=== PATIENT | male | born 1940 | race Caucasian/White ===

== ENCOUNTER 2019-05-13 03:22 | Emergency (ER) | payer MEDICARE ==
[~2019-05-13] VITALS: Ht 182.9 cm; Wt 78.0 kg
--- OUTSIDE RECORDS SUMMARY | 2019-05-13 03:25 | XMS REPORT ---
Author [facility] Address Unknown Phone Unavailable Care Team Providers Care Die Maker Trim Name Role Phone Unavailable Unavailable Payers Payer Name Policy Type Policy Number Effective Date Expiration Date Problems This patient has no known problems. Allergies, Adverse Reactions, Alerts Allergy Name Allergy Type Status Severity Reaction(s) Onset Date Inactive Date Treating Clinician Comments Penicillins DA Active U 2019-03-25 00:00:00 Penicillins DA Active U 2019-02-12 00:00:00 Penicillins DA Active U 2016-02-01 00:00:00 Medications This patient has no known medications. Encounters Start Date/Time End Date/Time Encounter Type Admission Type Attending Clinicians Care Facility Care Department Encounter ID 2017-08-16 17:38:00 2017-08-16 17:38:00 Emergency [facility] [id number] 2017-08-16 17:05:18 2017-08-16 17:05:18 Emergency [facility] [id number] Results Test Description Test Time Test Comments Text Results Atomic Results Result Comments TROPONIN-I 2019-04-27 13:36:00 TROPONIN-I (test code=TROPI) 0.025 ng/mL 0-0.045 COMMENTS TO THERAPEUTIC SPECIALIST: COLLECT 3 HOURS AFTER PREVIOUS SAMPLELIPID PROFILE (CORONARY RISK)2019-04-27 09:28:00* Test Item Value Reference Range Comments TRIGLYCERIDES (test code=TRIG) 102 mg/dL 20-150 CHOLESTEROL (test code=CHOL) 173 mg/dL 0-200 CHOLESTEROL/HDL RATIO (test code=CHOLHDL) 3.0 RATIO 0-4.9 RISK ASSOCIATED WITH CHOL/HDL RATIOS: Risk Male Female1/2 AVERAGE 3.43 3.27AVERAGE 4.97 4.442X AVERAGE 9.55 7.053X AVERAGE 23.39 11.04 REFERENCE VALUE IS RELATED TO RISK LEVELS ASRECOMMENDED BY THE [facility]. HEART, LUNG, AND BLOOD INST. HDL CHOLESTEROL (test code=HDL) 51 mg/dL 40-60 LIPOPROTEIN LDL (test code=LDL) 109 mg/dL 100-129 RN PERSONNEL, CONTACT PHYSICIAN IMMEDIATELY IF THIS IS A STROKE, AMI OR CAROTID STENOSIS PATIENT WHEN THE LDL >100 (1ST OCCURENCE, THIS ADMISSION) Reference Interval: mg/dL mmol/L Optimal <100 <2.6Near/above optimal 100-129 2.6- 3.3Borderline High 130-159 3.4-4.1High 160-189 4.1-4.9Very High >=190 >=4.9=========This LDL result is a direct measurement.========= [id number] 09:03:00* Test Item Value Reference Range Comments TROPONIN-I (test code=TROPI) 0.037 ng/mL 0-0.045 COMMENTS TO THERAPEUTIC SPECIALIST: COLLECT 3 HOURS AFTER PREVIOUS SAMPLEURINALYSIS [id number] 00:20:00* Test Item Value Reference Range Comments UA COLOR (test code=COLU) COLORLESS YELLOW UA APPEARANCE (test code=APPU) CLEAR CLEAR UA GLUCOSE DIPSTICK (test code=DGLUU) NEGATIVE mg/dL NEGATIVE UA BILIRUBIN DIPSTICK (test code=BILU) NEGATIVE mg/dL NEGATIVE UA KETONE DIPSTICK (test code=KETU) NEGATIVE mg/dL NEGATIVE UA SPECIFIC GRAVITY (test code=SGU) 1.008 1.001-1.035 UA BLOOD DIPSTICK (test code=PREM) Negative mg/dL NEGATIVE UA PH DIPSTICK (test code=NYLA) 6.5 5.0-8.0 UA PROTEIN DIPSTICK (test code=PROU) NEGATIVE mg/dL NEGATIVE UA UROBILINIOGEN DIPSTICK (test code=URO) Normal mg/dL NEGATIVE UA NITRITE DIPSTICK (test code=CATINA) NEGATIVE NEGATIVE UA LEUKOCYTE ESTERASE W REFLEX (test code=LEUUR) NEGATIVE Pawel/uL NEGATIVE UA WBC (test code=WBCU) 0-5 per HPF 0-5 UA RBC (test code=RBCU) 0-2 #/HPF 0-5 UA EPITHELIAL CELLS (test code=EPIU) Few (2-5/hpf) per HPF FEW UA BACTERIA (test code=BACU) NONE SEEN #/HPF NONE Urine Source? Clean CatchPROTHROMBIN [id number] 00:08:00* Test Item Value Reference Range Comments PROTHROMBIN TIME PATIENT (test code=PTP) 12.3 seconds 9.0-14.0 INTERNATIONAL NORMAL RATIO (test code=INR) 1.0 0.8-1.2 The therapeutic range for oral anticoagulant therapy formost indications is an international normalized ratio (INR)of between 2.0 and 3.0. The recommended therapeutic INRrange for various clinical situations is listed below: Clinical Situation INR range Pulmonary e mbolism treatment (2.0-3.0)Venous thrombosis treatmentVenous thrombosis prophylaxis (high risk surgery)Prevention of systemic embolism from: Acute myocardial infarction Valvular heart disease Atrial fibrillation Mechanical prosthetic heart valves (2.5-3.5) IS PATIENT ON ANTICOAGULANTS? NCBC W/O [id number] 00:06:00* Test Item Value Reference Range Comments WHITE BLOOD CELL (test code=WBC) 9.0 K/mm3 4.5-12.5 RED BLOOD CELL (test code=RBC) 5.06 mill/mm3 4.0-5.8 HEMOGLOBIN (test code=HGB) 14.2 gram/dL 13.0-17.5 HEMATOCRIT (test code=HCT) 44.6 % 42.0-52.0 MEAN CELL VOLUME (test code=MCV) 88.1 fL 80-98 MEAN CELL HGB (test code=MCH) 28.1 picogram 27.0-33.0 MEAN CELL HGB CONCETRATION (test code=MCHC) 31.8 gram/dL 33.0-36.0 RED CELL DISTRIBUTION WIDTH (test code=RDW) 13.8 % 11.6-16.2 PLATELET COUNT (test code=PLT) 215 K/mm3 150-450 MEAN PLATELET VOLUME (test code=MPV) 8.9 fL 6.7-11.0 BASIC METABOLIC [id number] 23:56:00* Test Item Value Reference Range Comments SODIUM (test code=NA) 139 mmol/L 136-145 POTASSIUM (test code=K) 4.2 mmol/L 3.5-5.1 CHLORIDE (test code=CL) 107.0 mmol/L 98-107 CARBON DIOXIDE (test code=CO2) 23.0 mmol/L 21-32 ANION GAP (test code=GAP) 13.2 10-20 GLUCOSE (test code=GLU) 128 mg/dL 74-106 BLOOD UREA NITROGEN (test code=BUN) 26 mg/dL 7-18 GLOMERULAR FILTRATION RATE (test code=GFR) 49 mL/min >=60 Estimated GFR by using Modified MDRD formula.Chronic kidney disease is defined as either kidney damageor GFR <60 mL/min/1.73 m2 for >3 months. CREATININE (test code=CREAT) 1.40 mg/dL 0.7-1.3 BUN/CREATININE RATIO (test code=BUN/CREA) 18.6 10-20 CALCIUM (test code=CA) 8.8 mg/dL 8.5-10.1 HEPATIC FUNCTION [id number] 23:56:00* Test Item Value Reference Range Comments TOTAL PROTEIN (test code=PROT) 7.5 gram/dL 6.4-8.2 ALBUMIN (test code=ALB) 3.1 g/dL 3.4-5.0 GLOBULIN (test code=GLOB) 4.4 gram/dL 2.7-4.2 ALBUMIN/GLOBULIN RATIO (test code=A/G) 0.7 0.75-1.50 BILIRUBIN TOTAL (test code=BILT) 0.40 mg/dL 0.0-1.0 BILIRUBIN DIRECT (test code=BILD) 0.12 mg/dL 0.0-0.20 SGOT/AST (test code=AST) 20 IUnit/L 15-37 SGPT/ALT (test code=ALT) 19 IUnit/L 12-78 ALKALINE PHOSPHATASE TOTAL (test code=ALKP) 86 IUnit/L 45-117 Note change in reference range due to change in reagent. [id number] 23:56:00* Test Item Value Reference Range Comments LIPASE (test code=LIP) 158 U/L 73.0-393.0 [id number] 23:56:00* Test Item Value Reference Range Comments TROPONIN-I (test code=TROPI) 0.037 ng/mL 0-0.045 BASIC METABOLIC [id number] 23:53:00* Test Item Value Reference Range Comments SODIUM (test code=NA) 139 mmol/L 136-145 POTASSIUM (test code=K) 4.2 mmol/L 3.5-5.1 CHLORIDE (test code=CL) 107.0 mmol/L 98-107 CARBON DIOXIDE (test code=CO2) mmol/L 21-32 ANION GAP (test code=GAP) 10-20 GLUCOSE (test code=GLU) mg/dL 74-106 BLOOD UREA NITROGEN (test code=BUN) mg/dL 7-18 GLOMERULAR FILTRATION RATE (test code=GFR) mL/min >=60 CREATININE (test code=CREAT) mg/dL 0.7-1.3 BUN/CREATININE RATIO (test code=BUN/CREA) 10-20 CALCIUM (test code=CA) mg/dL 8.5-10.1 HEPATIC FUNCTION [id number] 23:53:00* Test Item Value Reference Range Comments TOTAL PROTEIN (test code=PROT) gram/dL 6.4-8.2 ALBUMIN (test code=ALB) g/dL 3.4-5.0 GLOBULIN (test code=GLOB) gram/dL 2.7-4.2 ALBUMIN/GLOBULIN RATIO (test code=A/G) 0.75-1.50 BILIRUBIN TOTAL (test code=BILT) mg/dL 0.0-1.0 BILIRUBIN DIRECT (test code=BILD) mg/dL 0.0-0.20 SGOT/AST (test code=AST) IUnit/L 15-37 SGPT/ALT (test code=ALT) IUnit/L 12-78 ALKALINE PHOSPHATASE TOTAL (test code=ALKP) IUnit/L 45-117 [id number] 23:53:00* Test Item Value Reference Range Comments LIPASE (test code=LIP) U/L 73.0-393.0 [id number] 23:53:00* Test Item Value Reference Range Comments TROPONIN-I (test code=TROPI) ng/mL 0-0.045 - XR CHEST 1 [id number] 23:50:00 FAX: Kenny Mcfarland [phone] [place]: B St: REG FAX: Elier Cruz MD [phone] Name: CECIL FRANCIS [facility] : 1940 Age/S: 79/M [address] [facility] Unit #: [id number] Loc: [place] [address] Phys: Kenny Partida MD Acct: [id number] Dis Date: Status: REG ER PHONE #: [phone] Exam Date: 04/26/2019 2335 FAX #: [phone] Reason: CHEST PAIN EXAMS: CPT CODE: [id number] XR CHEST 1 V 45931 - XR CHEST 1 V, 04/26/2019 11:29 PM Reason For Examination: CHEST PAIN Comparison: April 18, 2019 Location: R16 Findings A right chest port is seen with tip at the level of the mid SVC. An AICD is noted. LUNGS: No definite pulmonary edema or consolidation. A right calcified granuloma is seen. PLEURA: No pleural effusions CARDIOMEDIASTINAL SILHOUETTE Unremarkable IMPRESSION: No plain film evidence of acute cardiopulmonary abnormality Additional findings as above at 7820 Reported and signed by: Hiwot Tafoya M.D. CC: Kenny Partida MD; Elier Rollins MD Technologist: RT CHAZ(R); Stefania Denis Trnscrd Date/Time/By: 04/26/2019 (8121) : By: [email or web address] Orig Print D/T: S: 04/26/2019 (8040) PAGE 1 Signed Report URINALYSIS [id number] 23:42:00* Test Item Value Reference Range Comments UA COLOR (test code=COLU) COLORLESS YELLOW UA APPEARANCE (test code=APPU) CLEAR CLEAR UA GLUCOSE DIPSTICK (test code=DGLUU) NEGATIVE mg/dL NEGATIVE UA BILIRUBIN DIPSTICK (test code=BILU) NEGATIVE mg/dL NEGATIVE UA KETONE DIPSTICK (test code=KETU) NEGATIVE mg/dL NEGATIVE UA SPECIFIC GRAVITY (test code=SGU) 1.008 1.001-1.035 UA BLOOD DIPSTICK (test code=PREM) Negative mg/dL NEGATIVE UA PH DIPSTICK (test code=NYLA) 6.5 5.0-8.0 UA PROTEIN DIPSTICK (test code=PROU) NEGATIVE mg/dL NEGATIVE UA UROBILINIOGEN DIPSTICK (test code=URO) Normal mg/dL NEGATIVE UA NITRITE DIPSTICK (test code=CATINA) NEGATIVE NEGATIVE UA LEUKOCYTE ESTERASE W REFLEX (test code=LEUUR) NEGATIVE Pawel/uL NEGATIVE UA WBC (test code=WBCU) per HPF 0-5 UA RBC (test code=RBCU) per HPF 0-5 UA EPITHELIAL CELLS (test code=EPIU) per HPF Few UA BACTERIA (test code=BACU) per HPF NONE Urine Source? Clean Catch- CT ABD PELVIS W/O [id number] 22:03:00 Name: CECIL FRANCIS [facility] : 1940 Age/S: 79 / M [address] [facility] Unit #: [id number] Loc: [place] [address] Phys: Kenny Partida MD Acct: [id number] Di s Date: Status: REG ER PHONE #: Exam Date: 04/26/2019 2149 FAX #: Reason: ABD DISTENSION, DYSURIA EXAMS: CPT CODE: [id number] CT ABD PELVIS W/O CONT 77204 REASON FOR EXAM: ABD DISTENSION, DYSURIA EXAM ORDER DATE: 04/26/2019 9:35 PM Ordering M.D.: Kenny Partida MD PROCEDURE: - CT ABD P JOYCE W/O CONT COMPARISON: FINDINGS: CT images of e abdomen and pelvis were obtained without IV and without oral contrast at 5mm. Dose modulation, iterative reconstruction, and/or weight based adjus tment of the MA/KV was utilized to reduce the radiation dose to as low as reasonably achievable. The liver, spleen, and pancreas are grossly within normal limits. The gall bladder is unremarkable by CT. The kidneys are within normal limits. The urinary bladder is u nremarkable. The colon, small bowel, and stomach are within normal limits without evidence of obstruction. The appendix is unremarkable No evidence of free air or free fluid. Diffuse atherosclerotic disease of the abdominal aorta. Multiple calcified granuloma in the spleen and liver right middle lobe IMPRESSION: No acute findings in the abdomen. at 2203 Reported and signed by: Cameron Brown M.D. CC: Kenny Becker MD; Elier Rollins MD Technologist:Roselyn LEA(R); TALI Campbell CTDI: DLP: Trnscb Date/Time: 04/26/2019 (2202) t .SDR.VTL Orig Print D/T: S: 04/26/2019 (2205) PAGE 1 Signed Report - [id number] 14:15:00 FAX: Elier Cruz MD [phone] [place]: St: PRE FAX: Ivelisse Braga [phone] Name: CECIL FRANCIS [facility] : 1940 Age/S: 79/M [address] [facility] Unit #: [id number] Loc: [place] [address] Phys: Ivelisse Mcmanus MD Acct: [id number] Dis Date: Status: PRE CLI PHONE #: [phone] Exam Date: 04/08/2019 1000 FAX #: [phone] Reason: RECTAL CA EXAMS: CPT CODE: [id number] PET/CT TUMOR SK [facility] [address] HISTORY: Staging rectal cancer. COMPARISON: Abdominal and pelvic CT from February 12, 2019. PET/CT SCAN: 12 mCi of FDG administered. Images obtained from the skull base to the upper thighs 1 ho ur postinjection. Blood glucose level=91 mg/dL. HEAD AND NEC K: Intense uptake within the brain parenchyma limited evaluation. Physiolo gic pharyngeal uptake. Pathologic uptake within the left parotid gland wit hin the deep lobe measured 2.3 cm with SUV uptake ranging up to 12. Biopsy recommended for definitive evaluation. This is unusual for metastatic dis ease. CHEST: No lung parenchymal uptake. No pathologic hilar, medi astinal or axillary uptake or adenopathy. No chest wall uptake. ABDOMEN: No liver or adrenal metastatic disease. Unremarkable pancreas and spleen. Excretion from both kidneys without abnormal uptake. No patho logic mesenteric, retroperitoneal or retrocrural adenopathy or uptake. Exc retion into the bowel as well. PELVIS: Intense uptake within the c ircumferentially thickened distal rectum measuring approximately 6 cm in l ength. SUV uptake ranging up to 21 consistent with colon/rectal cancer. No pathologic adenopathy or uptake. Excretion into the urinary bladder. MUSCULOSKELETAL: No metastatic disease. IMPRESSION: Circumferentially thickened distal rectal wall involving 6 cm long segment with SUV uptake ranging up to 21 consistent with rectal/colon cancer. No hepatic or adrenal metastases. No pathologic mesenteric, retroperitoneal or retrocrural adenopathy or uptake. Uptake within the deep lobe of the left lobe of the parotid gland measuring 2.3 cm with SUV uptake ranging up to 12. This is highly in usual. Biopsy recommended for definitive evaluation. PAGE 1 Signed Report (CONTINUED) FAX: Elier Cruz MD [phone] [place]: St: PRE FAX: Ivelisse Braga [phone] Name: CECIL FRANCIS [facility] : 1940 Age/S: 79/M [address] [facility] Unit #: [id number] Loc: [place] [address] Phys: Ivelisse Mcmanus MD Acct: [id number] Dis Date: Status: PRE CLI PHONE #: [phone] Exam Date: 04/08/2019 1000 FAX #: [phone] Reason: RECTAL CA EXAMS: CPT CODE: [id number] PET/CT TUMOR SK [place] MIDTH 37878 <Continued> at 1415 Reported and signed by: Javier Tiwari M.D. CC: Elier Rollins MD; Ivelisse Mcmanus MD echnologist: Sal Stone [facility] Trnscrd Date /Time/By: 04/08/2019 (1415) : By: [email or web address] Orig Print D/T: S: 019 (2774) PAGE 2 Signed Report BASIC METABOLIC [id number] 08:37:00* Test Item Value Reference Range Comments SODIUM (test code=NA) 140 mmol/L 136-145 POTASSIUM (test code=K) 3.8 mmol/L 3.5-5.1 CHLORIDE (test code=CL) 108.0 mmol/L 98-107 CARBON DIOXIDE (test code=CO2) 27.0 mmol/L 21-32 ANION GAP (test code=GAP) 8.8 10-20 GLUCOSE (test code=GLU) 103 mg/dL 74-106 BLOOD UREA NITROGEN (test code=BUN) 14 mg/dL 7-18 GLOMERULAR FILTRATION RATE (test code=GFR) 45 mL/min >=60 Estimated GFR by using Modified MDRD formula.Chronic kidney disease is defined as either kidney damageor GFR <60 mL/min/1.73 m2 for >3 months. CREATININE (test code=CREAT) 1.50 mg/dL 0.7-1.3 BUN/CREATININE RATIO (test code=BUN/CREA) 9.3 10-20 CALCIUM (test code=CA) 9.0 mg/dL 8.5-10.1 PROTHROMBIN [id number] 08:31:00* Test Item Value Reference Range Comments PROTHROMBIN TIME PATIENT (test code=PTP) 12.1 seconds 9.0-14.0 INTERNATIONAL NORMAL RATIO (test code=INR) 1.0 0.8-1.2 The therapeutic range for oral anticoagulant therapy formost indications is an international normalized ratio (INR)of between 2.0 and 3.0. The recommended therapeutic INRrange for various clinical situations is listed below: Clinical Situation INR range Pulmonary e mbolism treatment (2.0-3.0)Venous thrombosis treatmentVenous thrombosis prophylaxis (high risk surgery)Prevention of systemic embolism from: Acute myocardial infarction Valvular heart disease Atrial fibrillation Mechanical prosthetic heart valves (2.5-3.5) THROMBOPLASTIN TIME [id number] 08:31:00* Test Item Value Reference Range Comments THROMBOPLASTIN TIME PARTIAL (test code=PTT) 37.8 seconds 25.0-36.5 BASIC METABOLIC [id number] 08:29:00* Test Item Value Reference Range Comments SODIUM (test code=NA) 140 mmol/L 136-145 POTASSIUM (test code=K) 3.8 mmol/L 3.5-5.1 CHLORIDE (test code=CL) 108.0 mmol/L 98-107 CARBON DIOXIDE (test code=CO2) mmol/L 21-32 ANION GAP (test code=GAP) 10-20 GLUCOSE (test code=GLU) mg/dL 74-106 BLOOD UREA NITROGEN (test code=BUN) mg/dL 7-18 GLOMERULAR FILTRATION RATE (test code=GFR) mL/min >=60 CREATININE (test code=CREAT) mg/dL 0.7-1.3 BUN/CREATININE RATIO (test code=BUN/CREA) 10-20 CALCIUM (test code=CA) mg/dL 8.5-10.1 CBC W/AUTO [id number] 08:16:00* Test Item Value Reference Range Comments WHITE BLOOD CELL (test code=WBC) K/mm3 4.5-12.5 RED BLOOD CELL (test code=RBC) mill/mm3 4.0-5.8 HEMOGLOBIN (test code=HGB) 13.9 gram/dL 13.0-17.5 HEMATOCRIT (test code=HCT) 43.1 % 42.0-52.0 MEAN CELL VOLUME (test code=MCV) fL 80-98 MEAN CELL HGB (test code=MCH) picogram 27.0-33.0 MEAN CELL HGB CONCETRATION (test code=MCHC) gram/dL 33.0-36.0 RED CELL DISTRIBUTION WIDTH (test code=RDW) % 11.6-16.2 RED CELL DISTRIBUTION WIDTH SD (test code=RDW-SD) fL 37.0-51.0 PLATELET COUNT (test code=PLT) K/mm3 150-450 MEAN PLATELET VOLUME (test code=MPV) fL 6.7-11.0 NEUTROPHIL % (test code=NT%) % 39.0-69.0 IMMATURE GRANULOCYTE % (test code=IG%) % 0.0-5.0 LYMPHOCYTE % (test code=LY%) % 25.0-55.0 MONOCYTE % (test code=MO%) % 0.0-10.0 EOSINOPHIL % (test code=EO%) % 0.0-5.0 BASOPHIL % (test code=BA%) % 0.0-1.0 NEUTROPHIL # (test code=NT#) K/mm3 1.8-7.7 LYMPHOCYTE # (test code=LY#) K/mm3 1.0-5.0 MONOCYTE # (test code=MO#) K/mm3 0-0.8 EOSINOPHIL # (test code=EO#) K/mm3 0.0-0.5 BASOPHIL # (test code=BA#) K/mm3 0.0-0.2 CBC W/AUTO [id number] 08:16:00* Test Item Value Reference Range Comments WHITE BLOOD CELL (test code=WBC) 7.6 K/mm3 4.5-12.5 RED BLOOD CELL (test code=RBC) 4.91 mill/mm3 4.0-5.8 HEMOGLOBIN (test code=HGB) 13.9 gram/dL 13.0-17.5 HEMATOCRIT (test code=HCT) 43.1 % 42.0-52.0 MEAN CELL VOLUME (test code=MCV) 87.8 fL 80-98 MEAN CELL HGB (test code=MCH) 28.3 picogram 27.0-33.0 MEAN CELL HGB CONCETRATION (test code=MCHC) 32.3 gram/dL 33.0-36.0 RED CELL DISTRIBUTION WIDTH (test code=RDW) 13.7 % 11.6-16.2 RED CELL DISTRIBUTION WIDTH SD (test code=RDW-SD) 43.8 fL 37.0-51.0 PLATELET COUNT (test code=PLT) 251 K/mm3 150-450 MEAN PLATELET VOLUME (test code=MPV) 9.2 fL 6.7-11.0 NEUTROPHIL % (test code=NT%) 60.1 % 39.0-69.0 IMMATURE GRANULOCYTE % (test code=IG%) 0.4 % 0.0-5.0 LYMPHOCYTE % (test code=LY%) 19.2 % 25.0-55.0 MONOCYTE % (test code=MO%) 11.8 % 0.0-10.0 EOSINOPHIL % (test code=EO%) 6.9 % 0.0-5.0 BASOPHIL % (test code=BA%) 1.6 % 0.0-1.0 NUCLEATED RBC % (test code=NRBC%) 0.0 % 0-0 NEUTROPHIL # (test code=NT#) 4.54 K/mm3 1.8-7.7 IMMATURE GRANULOCYTE # (test code=IG#) 0.03 x10 3/uL 0-0.03 LYMPHOCYTE # (test code=LY#) 1.45 K/mm3 1.0-5.0 MONOCYTE # (test code=MO#) 0.89 K/mm3 0-0.8 EOSINOPHIL # (test code=EO#) 0.52 K/mm3 0.0-0.5 BASOPHIL # (test code=BA#) 0.12 K/mm3 0.0-0.2 NUCLEATED RBC # (test code=NRBC#) 0.00 K/mm3 0.0-0.1 MANUAL DIFF REQUIRED (test code=MDIFF) NO COMPREHENSIVE METABOLIC [id number] 05:44:00* Test Item Value Reference Range Comments SODIUM (test code=NA) 136 mmol/L 136-145 POTASSIUM (test code=K) 3.9 mmol/L 3.5-5.1 CHLORIDE (test code=CL) 107.0 mmol/L 98-107 CARBON DIOXIDE (test code=CO2) 21.0 mmol/L 21-32 ANION GAP (test code=GAP) 11.9 10-20 GLUCOSE (test code=GLU) 87 mg/dL 74-106 BLOOD UREA NITROGEN (test code=BUN) 19 mg/dL 7-18 GLOMERULAR FILTRATION RATE (test code=GFR) 45 mL/min >=60 Estimated GFR by using Modified MDRD formula.Chronic kidney disease is defined as either kidney damageor GFR <60 mL/min/1.73 m2 for >3 months. CREATININE (test code=CREAT) 1.50 mg/dL 0.7-1.3 BUN/CREATININE RATIO (test code=BUN/CREA) 12.7 10-20 TOTAL PROTEIN (test code=PROT) 6.9 gram/dL 6.4-8.2 ALBUMIN (test code=ALB) 2.8 g/dL 3.4-5.0 GLOBULIN (test code=GLOB) 4.1 gram/dL 2.7-4.2 ALBUMIN/GLOBULIN RATIO (test code=A/G) 0.7 0.75-1.50 CALCIUM (test code=CA) 8.8 mg/dL 8.5-10.1 BILIRUBIN TOTAL (test code=BILT) 0.40 mg/dL 0.0-1.0 SGOT/AST (test code=AST) 18 IUnit/L 15-37 SGPT/ALT (test code=ALT) 15 IUnit/L 12-78 ALKALINE PHOSPHATASE TOTAL (test code=ALKP) 64 IUnit/L 45-117 Note change in reference range due to change in reagent. COMPREHENSIVE METABOLIC [id number] 05:30:00* Test Item Value Reference Range Comments SODIUM (test code=NA) 136 mmol/L 136-145 POTASSIUM (test code=K) 3.9 mmol/L 3.5-5.1 CHLORIDE (test code=CL) 107.0 mmol/L 98-107 CARBON DIOXIDE (test code=CO2) mmol/L 21-32 ANION GAP (test code=GAP) 10-20 GLUCOSE (test code=GLU) mg/dL 74-106 BLOOD UREA NITROGEN (test code=BUN) mg/dL 7-18 GLOMERULAR FILTRATION RATE (test code=GFR) mL/min >=60 CREATININE (test code=CREAT) mg/dL 0.7-1.3 BUN/CREATININE RATIO (test code=BUN/CREA) 10-20 TOTAL PROTEIN (test code=PROT) gram/dL 6.4-8.2 ALBUMIN (test code=ALB) g/dL 3.4-5.0 GLOBULIN (test code=GLOB) gram/dL 2.7-4.2 ALBUMIN/GLOBULIN RATIO (test code=A/G) 0.75-1.50 CALCIUM (test code=CA) mg/dL 8.5-10.1 BILIRUBIN TOTAL (test code=BILT) mg/dL 0.0-1.0 SGOT/AST (test code=AST) IUnit/L 15-37 SGPT/ALT (test code=ALT) IUnit/L 12-78 ALKALINE PHOSPHATASE TOTAL (test code=ALKP) IUnit/L 45-117 CBC W/AUTO [id number] 05:11:00* Test Item Value Reference Range Comments WHITE BLOOD CELL (test code=WBC) 7.8 K/mm3 4.5-12.5 RED BLOOD CELL (test code=RBC) 4.42 mill/mm3 4.0-5.8 HEMOGLOBIN (test code=HGB) 12.6 gram/dL 13.0-17.5 HEMATOCRIT (test code=HCT) 38.8 % 42.0-52.0 MEAN CELL VOLUME (test code=MCV) 87.8 fL 80-98 MEAN CELL HGB (test code=MCH) 28.5 picogram 27.0-33.0 MEAN CELL HGB CONCETRATION (test code=MCHC) 32.5 gram/dL 33.0-36.0 RED CELL DISTRIBUTION WIDTH (test code=RDW) 13.5 % 11.6-16.2 RED CELL DISTRIBUTION WIDTH SD (test code=RDW-SD) 44.0 fL 37.0-51.0 PLATELET COUNT (test code=PLT) 198 K/mm3 150-450 MEAN PLATELET VOLUME (test code=MPV) 9.2 fL 6.7-11.0 NEUTROPHIL % (test code=NT%) 64.9 % 39.0-69.0 IMMATURE GRANULOCYTE % (test code=IG%) 0.4 % 0.0-5.0 LYMPHOCYTE % (test code=LY%) 17.8 % 25.0-55.0 MONOCYTE % (test code=MO%) 11.4 % 0.0-10.0 EOSINOPHIL % (test code=EO%) 4.5 % 0.0-5.0 BASOPHIL % (test code=BA%) 1.0 % 0.0-1.0 NUCLEATED RBC % (test code=NRBC%) 0.0 % 0-0 NEUTROPHIL # (test code=NT#) 5.08 K/mm3 1.8-7.7 IMMATURE GRANULOCYTE # (test code=IG#) 0.03 x10 3/uL 0-0.03 LYMPHOCYTE # (test code=LY#) 1.39 K/mm3 1.0-5.0 MONOCYTE # (test code=MO#) 0.89 K/mm3 0-0.8 EOSINOPHIL # (test code=EO#) 0.35 K/mm3 0.0-0.5 BASOPHIL # (test code=BA#) 0.08 K/mm3 0.0-0.2 NUCLEATED RBC # (test code=NRBC#) 0.00 K/mm3 0.0-0.1 [id number] 14:50:00 RUN DATE: 02/18/19 [facility] PAGE 1 RUN TIME: 1450 Specimen Inqui ry RUN USER: INTERFACE PATIENT: CECIL FRANCIS ACCT #: [id number] LOC: [facility] U #: [id number] AGE/SX: 79/M ROOM: 2064 RE02/13/19REG DR: Angelic Kuhn MD : 38 BED: B DIS: STATUS: ADM IN TLOC: SPEC #: [id number] RECD: 02/15/19 STATUS: ALEXEY WYATT #: [id number] SOLIS: 02/15/19- SUBM DR: Lukas Anaya MD ENTERED: 02/15/19 SP TYPE: COLON OTHR DR: Sidney Tamayo MD, William W DO Mullins, Jackie A MD Quraishi, Mohammed A MD TUMOR REGISTRYORDERED: GROSS COPIES TO: Lukas Anaya MD [address] [place] [address] Sidney Tamayo MD [address] [place], [place] [address] Cecil Mayorga DO [address] [place], [place] [id number] Sherry Phillips MD [address] [facility] [place], [place] [address] Ivelisse Mcmanus MD [address] [place] [address] T UMOR REGISTRY MARKERS: INTRADEPARTMENTAL CONSULT, MALIGNANCY PROCEDURES: GROSS ( 02/18/19-134) TISSUES: 1. DESCENDING COLON - POLYP 2. ASCENDI NG COLON - POLYP 3. CECUM, NOS - POLYP 4. RECTUM, NOS - POLYP CONTINUED ON NEXT PAGE RUN DATE: 02/18/19 [facility] PAGE 2 RUN TIME: 1450 Specimen Inquiry RUN USER: INTERFACE -- SPEC #: [id number] PATIENT: CECIL FRANCIS #[id number] (Continued) CLINICAL HISTORY COLLECTION DATE: 02/14/19 RECTAL MASS BLEEDING COMMENT Intradepartmental cons ultation: RRB/FA FINAL DIAGNOSIS Descending colon, polyp X 2, snare p olypectomy: TUBULAR ADENOMAS NEGATIVE FOR MALIGNANCY Ascendi ng colon, polyp X 2, snare polypectomy: TUBULAR ADENOMAS NEGATIVE FOR MALIGNANCY Cecum, polyp, biopsy: TUBULAR ADENOMA NEGATIV E FOR MALIGNANCY Rectum, mass, biopsy: ADENOCARCINOMA DMW/sm D (2) 00848 MACROSCOPIC Specimen (1) is received in for uzma, labeled with the patient's name, identified as "descending polyp", and consists of doan biopsy tissue measuring 0.35 cm in aggregate, submitted as (1) . Specimen (2) is received in formalin, labeled with the patient's name, identified as "ascending polyp", and consists of multiple fragments of doan bi opsy tissue measuring 0.5 cm in aggregate, submitted as (2). Specimen (3) is received in formalin, labeled with the patient's name, identified as "cecum ", and consists of a single fragment of doan biopsy tissue measuring 0.2 cm, leung bmitted as (3). Specimen (4) is received in formalin, labeled with the pat ient's name, identified as "rectal mass", and consists of two fragments of angella k doan biopsy tissue measuring 0.35 cm in aggregate, submitted as (4). 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 GROSS PERFORMED AT [facility] [address] [place] [address] [phone] PERFORMING SITE Diagnos is performed at: [facility], [place] [address] [place], [place] [id number] Jeffy Marques ON FILE Yadira Franks MD 02/18/19 1450 END OF REPORT COMPREHENSIVE METABOLIC [id number] 12:13:00* Test Item Value Reference Range Comments SODIUM (test code=NA) 138 mmol/L 136-145 POTASSIUM (test code=K) 4.1 mmol/L 3.5-5.1 CHLORIDE (test code=CL) 107.0 mmol/L 98-107 CARBON DIOXIDE (test code=CO2) 23.0 mmol/L 21-32 ANION GAP (test code=GAP) 12.1 10-20 GLUCOSE (test code=GLU) 128 mg/dL 74-106 BLOOD UREA NITROGEN (test code=BUN) 18 mg/dL 7-18 GLOMERULAR FILTRATION RATE (test code=GFR) 42 mL/min >=60 Estimated GFR by using Modified MDRD formula.Chronic kidney disease is defined as either kidney damageor GFR <60 mL/min/1.73 m2 for >3 months. CREATININE (test code=CREAT) 1.60 mg/dL 0.7-1.3 BUN/CREATININE RATIO (test code=BUN/CREA) 11.3 10-20 TOTAL PROTEIN (test code=PROT) 7.2 gram/dL 6.4-8.2 ALBUMIN (test code=ALB) 2.9 g/dL 3.4-5.0 GLOBULIN (test code=GLOB) 4.3 gram/dL 2.7-4.2 ALBUMIN/GLOBULIN RATIO (test code=A/G) 0.7 0.75-1.50 CALCIUM (test code=CA) 8.9 mg/dL 8.5-10.1 BILIRUBIN TOTAL (test code=BILT) 0.50 mg/dL 0.0-1.0 SGOT/AST (test code=AST) 17 IUnit/L 15-37 SGPT/ALT (test code=ALT) 14 IUnit/L 12-78 ALKALINE PHOSPHATASE TOTAL (test code=ALKP) 66 IUnit/L 45-117 Note change in reference range due to change in reagent. SPECIMEN COMMENTS: CODE [id number] 12:13:00* Test Item Value Reference Range Comments PHOSPHORUS (test code=PHOS) 2.7 mg/dL 2.5-4.9 SPECIMEN COMMENTS: CODE [id number] 12:13:00* Test Item Value Reference Range Comments MAGNESIUM (test code=MAG) 2.3 mg/dL 1.8-2.4 SPECIMEN COMMENTS: CODE STROKECOMPREHENSIVE METABOLIC [id number] 11:57:00* Test Item Value Reference Range Comments SODIUM (test code=NA) 138 mmol/L 136-145 POTASSIUM (test code=K) 4.1 mmol/L 3.5-5.1 CHLORIDE (test code=CL) 107.0 mmol/L 98-107 CARBON DIOXIDE (test code=CO2) mmol/L 21-32 ANION GAP (test code=GAP) 10-20 GLUCOSE (test code=GLU) mg/dL 74-106 BLOOD UREA NITROGEN (test code=BUN) mg/dL 7-18 GLOMERULAR FILTRATION RATE (test code=GFR) mL/min >=60 CREATININE (test code=CREAT) mg/dL 0.7-1.3 BUN/CREATININE RATIO (test code=BUN/CREA) 10-20 TOTAL PROTEIN (test code=PROT) gram/dL 6.4-8.2 ALBUMIN (test code=ALB) g/dL 3.4-5.0 GLOBULIN (test code=GLOB) gram/dL 2.7-4.2 ALBUMIN/GLOBULIN RATIO (test code=A/G) 0.75-1.50 CALCIUM (test code=CA) mg/dL 8.5-10.1 BILIRUBIN TOTAL (test code=BILT) mg/dL 0.0-1.0 SGOT/AST (test code=AST) IUnit/L 15-37 SGPT/ALT (test code=ALT) IUnit/L 12-78 ALKALINE PHOSPHATASE TOTAL (test code=ALKP) IUnit/L 45-117 SPECIMEN COMMENTS: CODE [id number] 11:57:00* Test Item Value Reference Range Comments PHOSPHORUS (test code=PHOS) mg/dL 2.5-4.9 SPECIMEN COMMENTS: CODE [id number] 11:57:00* Test Item Value Reference Range Comments MAGNESIUM (test code=MAG) mg/dL 1.8-2.4 SPECIMEN COMMENTS: CODE STROKECBC W/AUTO [id number] 11:48:00* Test Item Value Reference Range Comments WHITE BLOOD CELL (test code=WBC) 7.3 K/mm3 4.5-12.5 RED BLOOD CELL (test code=RBC) 4.67 mill/mm3 4.0-5.8 HEMOGLOBIN (test code=HGB) 12.7 gram/dL 13.0-17.5 HEMATOCRIT (test code=HCT) 41.7 % 42.0-52.0 MEAN CELL VOLUME (test code=MCV) 89.3 fL 80-98 MEAN CELL HGB (test code=MCH) 27.2 picogram 27.0-33.0 MEAN CELL HGB CONCETRATION (test code=MCHC) 30.5 gram/dL 33.0-36.0 RED CELL DISTRIBUTION WIDTH (test code=RDW) 13.7 % 11.6-16.2 RED CELL DISTRIBUTION WIDTH SD (test code=RDW-SD) 44.6 fL 37.0-51.0 PLATELET COUNT (test code=PLT) 205 K/mm3 150-450 MEAN PLATELET VOLUME (test code=MPV) 9.3 fL 6.7-11.0 NEUTROPHIL % (test code=NT%) 72.6 % 39.0-69.0 IMMATURE GRANULOCYTE % (test code=IG%) 0.7 % 0.0-5.0 LYMPHOCYTE % (test code=LY%) 14.1 % 25.0-55.0 MONOCYTE % (test code=MO%) 8.9 % 0.0-10.0 EOSINOPHIL % (test code=EO%) 2.6 % 0.0-5.0 BASOPHIL % (test code=BA%) 1.1 % 0.0-1.0 NUCLEATED RBC % (test code=NRBC%) 0.0 % 0-0 NEUTROPHIL # (test code=NT#) 5.30 K/mm3 1.8-7.7 IMMATURE GRANULOCYTE # (test code=IG#) 0.05 x10 3/uL 0-0.03 LYMPHOCYTE # (test code=LY#) 1.03 K/mm3 1.0-5.0 MONOCYTE # (test code=MO#) 0.65 K/mm3 0-0.8 EOSINOPHIL # (test code=EO#) 0.19 K/mm3 0.0-0.5 BASOPHIL # (test code=BA#) 0.08 K/mm3 0.0-0.2 NUCLEATED RBC # (test code=NRBC#) 0.00 K/mm3 0.0-0.1 MANUAL DIFF REQUIRED (test code=MDIFF) NO SPECIMEN COMMENTS: CODE STROKEPROTHROMBIN [id number] 11:37:00* Test Item Value Reference Range Comments PROTHROMBIN TIME PATIENT (test code=PTP) 13.2 seconds 9.0-14.0 INTERNATIONAL NORMAL RATIO (test code=INR) 1.1 0.8-1.2 The therapeutic range for oral anticoagulant therapy formost indications is an international normalized ratio (INR)of between 2.0 and 3.0. The recommended therapeutic INRrange for various clinical situations is listed below: Clinical Situation INR range Pulmonary e mbolism treatment (2.0-3.0)Venous thrombosis treatmentVenous thrombosis prophylaxis (high risk surgery)Prevention of systemic embolism from: Acute myocardial infarction Valvular heart disease Atrial fibrillation Mechanical prosthetic heart valves (2.5-3.5) IS PATIENT ON ANTICOAGULANTS? NSPECIMEN COMMENTS: CODE STROKETHROMBOPLASTIN TIME [id number] 11:37:00* Test Item Value Reference Range Comments THROMBOPLASTIN TIME PARTIAL (test code=PTT) 36.1 seconds 25.0-36.5 IS PATIENT ON ANTICOAGULANTS? NSPECIMEN COMMENTS: CODE STROKE- CT HEAD/BRAIN W/O [id number] 11:01:00 Name: CECIL FRANCIS [facility] : 1940 Age/S: 79 / [facility] [address] [facility]: [id number] Loc: [place] [address] Phys: Angelic Kuhn MD Acct: [id number] Dis Date: Status: ADM IN PHONE #: [phone] Exam Date: 02/18/2019 1052 FAX #: [phone] Reason: CODE STROKE EXAMS: CPT CODE: [id number] CT HEAD/BRAIN W/O CONT 34166 HISTORY: Stroke. COMPARISON: Head CT from February 14, 2019.. No acute intracranial bleeds or extra-axial collections are noted. No acute territorial vascular infarction is noted. The sulci, gyri, ventricles and subarachnoid spaces and the basilar cisterns are normal for patient's age. No herniation or hydrocephalus or midline shift is noted. Mild periventricular ischemic gliosis is noted. Age-appropriate atrophy is noted as well. Portions of the visualized paranasal sinuses are normal. No obvious bony calvarial defect is noted. IMPRESSION: No acute intracranial bleeds or extra- axial collections. No acute territorial vascular infarction. No herniation or hydrocephalus or midline shift. 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 These findings were discussed patient's nurse Felicita at 11:59 AM. FOR INTERNAL CODING PURPOSES ONLY RESULT CODE: CVR at 1101 Reported and signed by: Javier Tiwari M.D. CC: Angelic Kuhn MD Technologist:Steffanie Carrera,RT(R),CT CTDI: DLP: Trnscb Date/Time: 02/18/2019 (1101) [email or web address] Orig Print D/T: S: 02/18/2019 (4743) CTDI: DLP: PAGE 1 Signed Report [id number] 10:46:00* Test Item Value Reference Range Comments GLUGLADYS (test code=GLUBED) 115 mg/dL 74-106 Performed by certified mixer operator vacuum pan salt at [facility] - XR CHEST 1 [id number] 08:12:00 FAX: Angelic Sagastume MD [phone] [place]: St: ADM Name: CECIL SAGE [facility] : [birth year] Age/S: 79/M [address] [facility] Unit #: [id number] Loc: V.[address] [place] [address] Phys: Sidney Tamayo MD Acct: [id number] Dis Date: Status: ADM IN PHONE #: [phone] Exam Date: 02/18/2019749 FAX #: [phone] Reason: line placement EXAMS: CPT CODE: [id number] XR CHEST 1 V 44915 HISTORY: Line placement. COMPARISON: February 14, 2019. Right Port-A-Cath with the tip pr ojected over the SVC without pneumothorax. Left ICD is unchanged. No acute infiltrates, effusion or congestion. Calcified granuloma in the right low er lobe. Lung scarring. Cardiomegaly. IMPRESSION: Right Port-A-Cath with the tip projected over the SVC without pneumothorax. 19 at 0812 Reported and signed by: Javier Tiwari M.D. CC: Angelic Kuhn MD Technologist: BIPIN JORGENSEN JR Trnscrd Date/Time/By: 02/18/2019 (0812) : By: [email or web address] Orig Print D/T: S: (7700) PAGE 1 Signed Rep ort COMPREHENSIVE METABOLIC [id number] 04:55:00* Test Item Value Reference Range Comments SODIUM (test code=NA) 140 mmol/L 136-145 POTASSIUM (test code=K) 3.8 mmol/L 3.5-5.1 CHLORIDE (test code=CL) 108.0 mmol/L 98-107 CARBON DIOXIDE (test code=CO2) 24.0 mmol/L 21-32 ANION GAP (test code=GAP) 11.8 10-20 GLUCOSE (test code=GLU) 86 mg/dL 74-106 BLOOD UREA NITROGEN (test code=BUN) 16 mg/dL 7-18 GLOMERULAR FILTRATION RATE (test code=GFR) 49 mL/min >=60 Estimated GFR by using Modified MDRD formula.Chronic kidney disease is defined as either kidney damageor GFR <60 mL/min/1.73 m2 for >3 months. CREATININE (test code=CREAT) 1.40 mg/dL 0.7-1.3 BUN/CREATININE RATIO (test code=BUN/CREA) 11.4 10-20 TOTAL PROTEIN (test code=PROT) 7.3 gram/dL 6.4-8.2 ALBUMIN (test code=ALB) 2.8 g/dL 3.4-5.0 GLOBULIN (test code=GLOB) 4.5 gram/dL 2.7-4.2 ALBUMIN/GLOBULIN RATIO (test code=A/G) 0.6 0.75-1.50 CALCIUM (test code=CA) 8.8 mg/dL 8.5-10.1 BILIRUBIN TOTAL (test code=BILT) 0.40 mg/dL 0.0-1.0 SGOT/AST (test code=AST) 18 IUnit/L 15-37 SGPT/ALT (test code=ALT) 13 IUnit/L 12-78 ALKALINE PHOSPHATASE TOTAL (test code=ALKP) 67 IUnit/L 45-117 Note change in reference range due to change in reagent. COMPREHENSIVE METABOLIC [id number] 04:48:00* Test Item Value Reference Range Comments SODIUM (test code=NA) 140 mmol/L 136-145 POTASSIUM (test code=K) 3.8 mmol/L 3.5-5.1 CHLORIDE (test code=CL) 108.0 mmol/L 98-107 CARBON DIOXIDE (test code=CO2) mmol/L 21-32 ANION GAP (test code=GAP) 10-20 GLUCOSE (test code=GLU) mg/dL 74-106 BLOOD UREA NITROGEN (test code=BUN) mg/dL 7-18 GLOMERULAR FILTRATION RATE (test code=GFR) mL/min >=60 CREATININE (test code=CREAT) mg/dL 0.7-1.3 BUN/CREATININE RATIO (test code=BUN/CREA) 10-20 TOTAL PROTEIN (test code=PROT) gram/dL 6.4-8.2 ALBUMIN (test code=ALB) g/dL 3.4-5.0 GLOBULIN (test code=GLOB) gram/dL 2.7-4.2 ALBUMIN/GLOBULIN RATIO (test code=A/G) 0.75-1.50 CALCIUM (test code=CA) mg/dL 8.5-10.1 BILIRUBIN TOTAL (test code=BILT) mg/dL 0.0-1.0 SGOT/AST (test code=AST) IUnit/L 15-37 SGPT/ALT (test code=ALT) IUnit/L 12-78 ALKALINE PHOSPHATASE TOTAL (test code=ALKP) IUnit/L 45-117 CBC W/AUTO [id number] 04:44:00* Test Item Value Reference Range Comments WHITE BLOOD CELL (test code=WBC) 6.6 K/mm3 4.5-12.5 RED BLOOD CELL (test code=RBC) 4.59 mill/mm3 4.0-5.8 HEMOGLOBIN (test code=HGB) 13.1 gram/dL 13.0-17.5 HEMATOCRIT (test code=HCT) 40.3 % 42.0-52.0 MEAN CELL VOLUME (test code=MCV) 87.8 fL 80-98 MEAN CELL HGB (test code=MCH) 28.5 picogram 27.0-33.0 MEAN CELL HGB CONCETRATION (test code=MCHC) 32.5 gram/dL 33.0-36.0 RED CELL DISTRIBUTION WIDTH (test code=RDW) 13.7 % 11.6-16.2 RED CELL DISTRIBUTION WIDTH SD (test code=RDW-SD) 44.0 fL 37.0-51.0 PLATELET COUNT (test code=PLT) 202 K/mm3 150-450 MEAN PLATELET VOLUME (test code=MPV) 9.5 fL 6.7-11.0 NEUTROPHIL % (test code=NT%) 55.3 % 39.0-69.0 IMMATURE GRANULOCYTE % (test code=IG%) 0.5 % 0.0-5.0 LYMPHOCYTE % (test code=LY%) 23.0 % 25.0-55.0 MONOCYTE % (test code=MO%) 12.8 % 0.0-10.0 EOSINOPHIL % (test code=EO%) 7.3 % 0.0-5.0 BASOPHIL % (test code=BA%) 1.1 % 0.0-1.0 NUCLEATED RBC % (test code=NRBC%) 0.0 % 0-0 NEUTROPHIL # (test code=NT#) 3.64 K/mm3 1.8-7.7 IMMATURE GRANULOCYTE # (test code=IG#) 0.03 x10 3/uL 0-0.03 LYMPHOCYTE # (test code=LY#) 1.51 K/mm3 1.0-5.0 MONOCYTE # (test code=MO#) 0.84 K/mm3 0-0.8 EOSINOPHIL # (test code=EO#) 0.48 K/mm3 0.0-0.5 BASOPHIL # (test code=BA#) 0.07 K/mm3 0.0-0.2 NUCLEATED RBC # (test code=NRBC#) 0.00 K/mm3 0.0-0.1 CBC W/AUTO [id number] 04:41:00* Test Item Value Reference Range Comments WHITE BLOOD CELL (test code=WBC) K/mm3 4.5-12.5 RED BLOOD CELL (test code=RBC) mill/mm3 4.0-5.8 HEMOGLOBIN (test code=HGB) 13.1 gram/dL 13.0-17.5 HEMATOCRIT (test code=HCT) % 42.0-52.0 MEAN CELL VOLUME (test code=MCV) fL 80-98 MEAN CELL HGB (test code=MCH) picogram 27.0-33.0 MEAN CELL HGB CONCETRATION (test code=MCHC) gram/dL 33.0-36.0 RED CELL DISTRIBUTION WIDTH (test code=RDW) % 11.6-16.2 RED CELL DISTRIBUTION WIDTH SD (test code=RDW-SD) fL 37.0-51.0 PLATELET COUNT (test code=PLT) K/mm3 150-450 MEAN PLATELET VOLUME (test code=MPV) fL 6.7-11.0 NEUTROPHIL % (test code=NT%) % 39.0-69.0 IMMATURE GRANULOCYTE % (test code=IG%) % 0.0-5.0 LYMPHOCYTE % (test code=LY%) % 25.0-55.0 MONOCYTE % (test code=MO%) % 0.0-10.0 EOSINOPHIL % (test code=EO%) % 0.0-5.0 BASOPHIL % (test code=BA%) % 0.0-1.0 NEUTROPHIL # (test code=NT#) K/mm3 1.8-7.7 LYMPHOCYTE # (test code=LY#) K/mm3 1.0-5.0 MONOCYTE # (test code=MO#) K/mm3 0-0.8 EOSINOPHIL # (test code=EO#) K/mm3 0.0-0.5 BASOPHIL # (test code=BA#) K/mm3 0.0-0.2 AG [id number] 22:20:00* Test Item Value Reference Range Comments AG CARCINOEMBRYONIC (test code=CEA) 1.6 ng/mL 0.0-3.0 "HEALTHY" SMOKERS CAN HAVE CEA VALUES UP TO 5 NG/ML. BENIGNDISORDERS SELDOM ELEVATE THE SERUM CEA LEVEL ABOVE 10 NG/ML. CBC W/AUTO [id number] 06:56:00* Test Item Value Reference Range Comments WHITE BLOOD CELL (test code=WBC) 10.1 K/mm3 4.5-12.5 RED BLOOD CELL (test code=RBC) 4.56 mill/mm3 4.0-5.8 HEMOGLOBIN (test code=HGB) 12.8 gram/dL 13.0-17.5 HEMATOCRIT (test code=HCT) 40.6 % 42.0-52.0 MEAN CELL VOLUME (test code=MCV) 89.0 fL 80-98 MEAN CELL HGB (test code=MCH) 28.1 picogram 27.0-33.0 MEAN CELL HGB CONCETRATION (test code=MCHC) 31.5 gram/dL 33.0-36.0 RED CELL DISTRIBUTION WIDTH (test code=RDW) 14.0 % 11.6-16.2 RED CELL DISTRIBUTION WIDTH SD (test code=RDW-SD) 45.0 fL 37.0-51.0 PLATELET COUNT (test code=PLT) 178 K/mm3 150-450 MEAN PLATELET VOLUME (test code=MPV) 9.4 fL 6.7-11.0 NEUTROPHIL % (test code=NT%) 74.0 % 39.0-69.0 IMMATURE GRANULOCYTE % (test code=IG%) 0.3 % 0.0-5.0 LYMPHOCYTE % (test code=LY%) 12.6 % 25.0-55.0 MONOCYTE % (test code=MO%) 10.7 % 0.0-10.0 EOSINOPHIL % (test code=EO%) 1.8 % 0.0-5.0 BASOPHIL % (test code=BA%) 0.6 % 0.0-1.0 NUCLEATED RBC % (test code=NRBC%) 0.0 % 0-0 NEUTROPHIL # (test code=NT#) 7.49 K/mm3 1.8-7.7 IMMATURE GRANULOCYTE # (test code=IG#) 0.03 x10 3/uL 0-0.03 LYMPHOCYTE # (test code=LY#) 1.27 K/mm3 1.0-5.0 MONOCYTE # (test code=MO#) 1.08 K/mm3 0-0.8 EOSINOPHIL # (test code=EO#) 0.18 K/mm3 0.0-0.5 BASOPHIL # (test code=BA#) 0.06 K/mm3 0.0-0.2 NUCLEATED RBC # (test code=NRBC#) 0.00 K/mm3 0.0-0.1 MANUAL DIFF REQUIRED (test code=MDIFF) NO BASIC METABOLIC [id number] 06:53:00* Test Item Value Reference Range Comments SODIUM (test code=NA) 139 mmol/L 136-145 POTASSIUM (test code=K) 3.8 mmol/L 3.5-5.1 CHLORIDE (test code=CL) 110.0 mmol/L 98-107 CARBON DIOXIDE (test code=CO2) 22.0 mmol/L 21-32 ANION GAP (test code=GAP) 10.8 10-20 GLUCOSE (test code=GLU) 94 mg/dL 74-106 BLOOD UREA NITROGEN (test code=BUN) 13 mg/dL 7-18 GLOMERULAR FILTRATION RATE (test code=GFR) 58 mL/min >=60 Estimated GFR by using Modified MDRD formula.Chronic kidney disease is defined as either kidney damageor GFR <60 mL/min/1.73 m2 for >3 months. CREATININE (test code=CREAT) 1.20 mg/dL 0.7-1.3 BUN/CREATININE RATIO (test code=BUN/CREA) 10.8 10-20 CALCIUM (test code=CA) 8.6 mg/dL 8.5-10.1 [id number] 06:53:00* Test Item Value Reference Range Comments PHOSPHORUS (test code=PHOS) 2.9 mg/dL 2.5-4.9 [id number] 06:53:00* Test Item Value Reference Range Comments MAGNESIUM (test code=MAG) 2.4 mg/dL 1.8-2.4 BASIC METABOLIC [id number] 06:42:00* Test Item Value Reference Range Comments SODIUM (test code=NA) 139 mmol/L 136-145 POTASSIUM (test code=K) 3.8 mmol/L 3.5-5.1 CHLORIDE (test code=CL) 110.0 mmol/L 98-107 CARBON DIOXIDE (test code=CO2) mmol/L 21-32 ANION GAP (test code=GAP) 10-20 GLUCOSE (test code=GLU) mg/dL 74-106 BLOOD UREA NITROGEN (test code=BUN) mg/dL 7-18 GLOMERULAR FILTRATION RATE (test code=GFR) mL/min >=60 CREATININE (test code=CREAT) mg/dL 0.7-1.3 BUN/CREATININE RATIO (test code=BUN/CREA) 10-20 CALCIUM (test code=CA) mg/dL 8.5-10.1 [id number] 06:42:00* Test Item Value Reference Range Comments PHOSPHORUS (test code=PHOS) mg/dL 2.5-4.9 [id number] 06:42:00* Test Item Value Reference Range Comments MAGNESIUM (test code=MAG) mg/dL 1.8-2.4 - CT HEAD/BRAIN W/O [id number] 22:26:00 Name: CECIL FRANCIS [facility] : 1940 Age/S: 79 / M Michelle Coelho Unit #: [id number] Loc: [place] [address] Phys: Angelic Kuhn MD Acct: [id number] Dis Date: Status: ADM IN PHONE #: [phone] Exam Date: 02/14/20192056 FAX #: [phone] Reason: FALL EXAMS: CPT CODE: [id number] CT HEAD/BRAIN W/O CONT [id number] EXAM: CT of the head without contrast; INFORMATION: Status post fall, colon mass; TECHNIQUE AND FINDINGS: CT dose reduction protocol; 2.5 mm axial scans. There is no evidence of intra or extra-axial hemorrhage, mass lesions or midline shift. There are extensive hypodensities involving the periventricular and deep white matter, left greater than right. This is similar to a study from December 26, 2018. Otherwise, unremarkable pritchard/white matter differentiation. Ventricles are moderately dilated; prominent sulci and basilar cisterns. Bone windows show no abnormalities; the calvarium is intact. Mucosal swelling in the left maxillary sinus and in the medial inferior portions of the right frontal sinus. Mastoid air cells are well aerated. IMPRESSION: 1. No evidence of intracranial hemorrhage or acute territorial infarction. 2. Extensive chronic ischemic white matter changes. This is similar to a study from December 26, 2018. 3. No evidence of skull fracture. 4. Mild sinusitis. at 2226 Reported and signed by: Hector Merrill M.D. CC: Angelic Monteiro MD Technologist:TALI MILLAN, RT (R) CT CTDI: DLP: Trnscb Date/Time: 02/14/2019 (2225) [email or web address] Orig Print D/T: S: 02/14/2019 (2229) CTDI: DLP: PAGE 1 Signed Report - XR CHEST 1 [id number] 20:00:00 FAX: Angelic Sagastume MD [phone] [place]: B St: [facility] FAX: Zeeshan Wheeler MD [phone] Name: CECIL FRANCIS [facility] : 1940 Age/S: 79/M [address] [facility] Unit #: [id number] Loc: [place] [address] Phys: Zeeshan Wheeler MD Acct: [id number] Dis Date: Status: ADM IN PHONE #: [phone] Exam Date: 02/14/20191742 FAX #: [phone] Reason: S/P FALL EXAMS: CPT CODE: [id number] XR CHEST 1 V 56281 EXAM: Chest x-ray, one view; INFORMATION: Status post fall, colon mass; rectal bleeding; IMPRESSION: 1. Co mpared with a study from December 26, 2018 the heart has decreased in siz e. Its size is now within upper limits of normal. 2. Except for a calcif ied granuloma laterally in the right lung, the lungs are well aerated; n o infiltrates and no edema. 3. No effusions; no pneumothorax. 4. Aortic calcifications. 5. 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 CC: Angelic Kuhn MD; Zeeshan Holden MD Technologist: Alexander LEA(R) Trnscrd Date/Time/By: 02/14/2019 (1999) : By: PatricioGRW Orig Print D/T: S: 02/14/2019 (2002) PAGE 1 Signed Report - XR ABDOMEN AP 1 V 2019-02-14 19:16:00 FAX: Angelic Sagastume MD [phone] [place]: St: ADM FAX: Zeeshan Wheeler MD [phone] Name: CECIL FRANCIS [facility] : 1940 Age/S: 79/M [address] [facility] Unit #: [id number] Loc: [facility] [place] [address] Phys: Zeeshan Wheeler MD Acct: [id number] Dis Date: Status: ADM IN PHONE #: [phone] Exam Date: 02/14/2019 174 FAX #: [phone] Reason: S/P FALL EXAMS: CPT CODE: [id number] XR ABDOMEN AP 1 V [id number] EXAM: Abdomen, one view; INFORMATION: Colon mass, rectal bleeding; status post fall; IMPRESSION: 1. Unremarkable bowel gas pattern; no evidence of obstruction or other acute abnormalities. 2. Extensive calcifications of the thoracoabdominal aorta. at 1916 Reported and signed by: Hector Merrill M.D. CC: Angelic Kuhn MD; Zeeshan Wheeler MD Technologist: Alexander LEA(R) Trnscrd Date/Time/By: 02/14/2019 (1915) : By: PatricioGRW Orig Print D/T: S: 02/14/2019 (1918) PAGE 1 Signed Report [id number] 17:09:00* Test Item Value Reference Range Comments GLUBED (test code=GLUBED) 98 mg/dL 74-106 Performed by certified mixer operator vacuum pan salt at [facility] COMPREHENSIVE METABOLIC [id number] 09:39:00* Test Item Value Reference Range Comments SODIUM (test code=NA) 139 mmol/L 136-145 POTASSIUM (test code=K) 4.0 mmol/L 3.5-5.1 CHLORIDE (test code=CL) 108.0 mmol/L 98-107 CARBON DIOXIDE (test code=CO2) 24.0 mmol/L 21-32 ANION GAP (test code=GAP) 11.0 10-20 GLUCOSE (test code=GLU) 90 mg/dL 74-106 BLOOD UREA NITROGEN (test code=BUN) 14 mg/dL 7-18 GLOMERULAR FILTRATION RATE (test code=GFR) 53 mL/min >=60 Estimated GFR by using Modified MDRD formula.Chronic kidney disease is defined as either kidney damageor GFR <60 mL/min/1.73 m2 for >3 months. CREATININE (test code=CREAT) 1.30 mg/dL 0.7-1.3 BUN/CREATININE RATIO (test code=BUN/CREA) 10.4 10-20 TOTAL PROTEIN (test code=PROT) 7.5 gram/dL 6.4-8.2 ALBUMIN (test code=ALB) 3.1 g/dL 3.4-5.0 GLOBULIN (test code=GLOB) 4.4 gram/dL 2.7-4.2 ALBUMIN/GLOBULIN RATIO (test code=A/G) 0.7 0.75-1.50 CALCIUM (test code=CA) 8.9 mg/dL 8.5-10.1 BILIRUBIN TOTAL (test code=BILT) 0.60 mg/dL 0.0-1.0 SGOT/AST (test code=AST) 17 IUnit/L 15-37 SGPT/ALT (test code=ALT) 14 IUnit/L 12-78 ALKALINE PHOSPHATASE TOTAL (test code=ALKP) 71 IUnit/L 45-117 Note change in reference range due to change in reagent. LIPID PROFILE (CORONARY RISK)2019-02-14 09:39:00* Test Item Value Reference Range Comments TRIGLYCERIDES (test code=TRIG) 137 mg/dL 20-150 CHOLESTEROL (test code=CHOL) 163 mg/dL 0-200 CHOLESTEROL/HDL RATIO (test code=CHOLHDL) 4.0 RATIO 0-4.9 RISK ASSOCIATED WITH CHOL/HDL RATIOS: Risk Male Female1/2 AVERAGE 3.43 3.27AVERAGE 4.97 4.442X AVERAGE 9.55 7.053X AVERAGE 23.39 11.04 REFERENCE VALUE IS RELATED TO RISK LEVELS ASRECOMMENDED BY THE [facility]. HEART, LUNG, AND BLOOD INST. HDL CHOLESTEROL (test code=HDL) 36 mg/dL 40-60 LIPOPROTEIN LDL (test code=LDL) 111 mg/dL 100-129 RN PERSONNEL, CONTACT PHYSICIAN IMMEDIATELY IF THIS IS A STROKE, AMI OR CAROTID STENOSIS PATIENT WHEN THE LDL >100 (1ST OCCURENCE, THIS ADMISSION) Reference Interval: mg/dL mmol/L Optimal <100 <2.6Near/above optimal 100-129 2.6- 3.3Borderline High 130-159 3.4-4.1High 160-189 4.1-4.9Very High >=190 >=4.9=========This LDL result is a direct measurement.========= THYROID STIMULATING [id number] 09:39:00* Test Item Value Reference Range Comments THYROID STIMULATING HORMONE (test code=TSH) 4.660 uIU/mL 0.36-3.74 TSH REFERENCE RANGES: EUTHYROID: 0.35 - 4.3 mIU/mL HYPO : > 5.5 mIU/mL HYPER : < 0.35 mIU/mL CBC W/AUTO [id number] 09:04:00* Test Item Value Reference Range Comments WHITE BLOOD CELL (test code=WBC) 8.5 K/mm3 4.5-12.5 RED BLOOD CELL (test code=RBC) 4.80 mill/mm3 4.0-5.8 HEMOGLOBIN (test code=HGB) 13.4 gram/dL 13.0-17.5 HEMATOCRIT (test code=HCT) 42.1 % 42.0-52.0 MEAN CELL VOLUME (test code=MCV) 87.7 fL 80-98 MEAN CELL HGB (test code=MCH) 27.9 picogram 27.0-33.0 MEAN CELL HGB CONCETRATION (test code=MCHC) 31.8 gram/dL 33.0-36.0 RED CELL DISTRIBUTION WIDTH (test code=RDW) 14.1 % 11.6-16.2 RED CELL DISTRIBUTION WIDTH SD (test code=RDW-SD) 45.1 fL 37.0-51.0 PLATELET COUNT (test code=PLT) 188 K/mm3 150-450 MEAN PLATELET VOLUME (test code=MPV) 9.5 fL 6.7-11.0 NEUTROPHIL % (test code=NT%) 64.2 % 39.0-69.0 IMMATURE GRANULOCYTE % (test code=IG%) 0.4 % 0.0-5.0 LYMPHOCYTE % (test code=LY%) 18.6 % 25.0-55.0 MONOCYTE % (test code=MO%) 10.8 % 0.0-10.0 EOSINOPHIL % (test code=EO%) 4.9 % 0.0-5.0 BASOPHIL % (test code=BA%) 1.1 % 0.0-1.0 NUCLEATED RBC % (test code=NRBC%) 0.0 % 0-0 NEUTROPHIL # (test code=NT#) 5.48 K/mm3 1.8-7.7 IMMATURE GRANULOCYTE # (test code=IG#) 0.03 x10 3/uL 0-0.03 LYMPHOCYTE # (test code=LY#) 1.59 K/mm3 1.0-5.0 MONOCYTE # (test code=MO#) 0.92 K/mm3 0-0.8 EOSINOPHIL # (test code=EO#) 0.42 K/mm3 0.0-0.5 BASOPHIL # (test code=BA#) 0.09 K/mm3 0.0-0.2 NUCLEATED RBC # (test code=NRBC#) 0.00 K/mm3 0.0-0.1 MANUAL DIFF REQUIRED (test code=MDIFF) NO [id number] 09:00:00* Test Item Value Reference Range Comments GLYCOSYLATED HEMOGLOBIN (HA1C) (test code=GLYHGB) 5.6 % HbA1 4.8-6.0 ESTIMATED AVERAGE GLUCOSE (test code=EAG) 114 MG/DL CBC W/AUTO [id number] 08:48:00* Test Item Value Reference Range Comments WHITE BLOOD CELL (test code=WBC) K/mm3 4.5-12.5 RED BLOOD CELL (test code=RBC) mill/mm3 4.0-5.8 HEMOGLOBIN (test code=HGB) 13.4 gram/dL 13.0-17.5 HEMATOCRIT (test code=HCT) 42.1 % 42.0-52.0 MEAN CELL VOLUME (test code=MCV) fL 80-98 MEAN CELL HGB (test code=MCH) picogram 27.0-33.0 MEAN CELL HGB CONCETRATION (test code=MCHC) gram/dL 33.0-36.0 RED CELL DISTRIBUTION WIDTH (test code=RDW) % 11.6-16.2 RED CELL DISTRIBUTION WIDTH SD (test code=RDW-SD) fL 37.0-51.0 PLATELET COUNT (test code=PLT) K/mm3 150-450 MEAN PLATELET VOLUME (test code=MPV) fL 6.7-11.0 NEUTROPHIL % (test code=NT%) % 39.0-69.0 IMMATURE GRANULOCYTE % (test code=IG%) % 0.0-5.0 LYMPHOCYTE % (test code=LY%) % 25.0-55.0 MONOCYTE % (test code=MO%) % 0.0-10.0 EOSINOPHIL % (test code=EO%) % 0.0-5.0 BASOPHIL % (test code=BA%) % 0.0-1.0 NEUTROPHIL # (test code=NT#) K/mm3 1.8-7.7 LYMPHOCYTE # (test code=LY#) K/mm3 1.0-5.0 MONOCYTE # (test code=MO#) K/mm3 0-0.8 EOSINOPHIL # (test code=EO#) K/mm3 0.0-0.5 BASOPHIL # (test code=BA#) K/mm3 0.0-0.2 URINALYSIS [id number] 02:42:00* Test Item Value Reference Range Comments UA COLOR (test code=COLU) YELLOW YELLOW UA APPEARANCE (test code=APPU) CLEAR CLEAR UA GLUCOSE DIPSTICK (test code=DGLUU) NEGATIVE mg/dL NEGATIVE UA BILIRUBIN DIPSTICK (test code=BILU) NEGATIVE mg/dL NEGATIVE UA KETONE DIPSTICK (test code=KETU) Negative mg/dL NEGATIVE UA SPECIFIC GRAVITY (test code=SGU) 1.012 1.001-1.035 UA BLOOD DIPSTICK (test code=PREM) Negative NEGATIVE UA PH DIPSTICK (test code=NYLA) 6.0 5.0-8.0 UA PROTEIN DIPSTICK (test code=PROU) Negative mg/dL NEGATIVE UA UROBILINIOGEN DIPSTICK (test code=URO) NEGATIVE mg/dL NEGATIVE UA NITRITE DIPSTICK (test code=CATINA) NEGATIVE NEGATIVE UA LEUKOCYTE ESTERASE W REFLEX (test code=LEUUR) NEGATIVE NEGATIVE UA WBC (test code=WBCU) 0-5 #/HPF 0-5 Urine Source? Clean CatchURINALYSIS [id number] 02:39:00* Test Item Value Reference Range Comments UA COLOR (test code=COLU) YELLOW YELLOW UA APPEARANCE (test code=APPU) CLEAR CLEAR UA GLUCOSE DIPSTICK (test code=DGLUU) NEGATIVE mg/dL NEGATIVE UA BILIRUBIN DIPSTICK (test code=BILU) NEGATIVE mg/dL NEGATIVE UA KETONE DIPSTICK (test code=KETU) Negative mg/dL NEGATIVE UA SPECIFIC GRAVITY (test code=SGU) 1.012 1.001-1.035 UA BLOOD DIPSTICK (test code=PREM) Negative NEGATIVE UA PH DIPSTICK (test code=NYLA) 6.0 5.0-8.0 UA PROTEIN DIPSTICK (test code=PROU) Negative mg/dL NEGATIVE UA UROBILINIOGEN DIPSTICK (test code=URO) NEGATIVE mg/dL NEGATIVE UA NITRITE DIPSTICK (test code=CATINA) NEGATIVE NEGATIVE UA LEUKOCYTE ESTERASE W REFLEX (test code=LEUUR) NEGATIVE NEGATIVE UA WBC (test code=WBCU) per HPF 0-5 Urine Source? Clean Catch- CT ABD PELVIS [id number] 00:12:00 Name: CECIL FRANCIS [facility] : 1940 Age/S: 79 / M [address] [facility] Unit #: [id number] Loc: [place] [address] Phys: Dm Hernandez MD Acct: [id number] Di s Date: Status: REG ER PHONE #: Exam Date: 02/12/2019 2345 FAX #: [phone] Reason: rectal bleeding EXAMS: CPT CODE: [id number] CT ABD PELVIS W/CONT 13686 EXAM: - CT ABD PELVIS W/ CONT INDICATION: 79 years -old Male with rectal bleeding Location code:C3 TECHNIQUE: Contrast - IV contrast was given. No oral contrast was given Portal venous phase - abdomen and pelv is Delayed phase imaging was obtained through the abdomen and pelvis Reconstructions - coronal and sagittal planes Automated exposure reduction (Auto mA/Smart mA) was utilized in compliance with ACR Image Wis kelsey with DLP of 713.17 mGy-cm. COMPARISON: None FIND INGS: Statements: None. Thoracic: Calcified pulmonary nodule s indicative of old granulomas disease are seen. Fibrotic change at the l pat bases is present. Dense vascular calcifications are seen as well as c ardiac pacemaker. Hepatobiliary: Calcified hepatic granulomata are present. The gallbladder is normal. No biliary dilation. Pa ncreas: Normal. Spleen: Calcified splenic granulomata are present. Adrenals: Normal. Genitourinary: There is an 8 mm cyst in the right kidney. The kidneys are otherwise unremarkable. Evalua tion of the bladder is limited, but no obvious bladder abnormality is pres ent. Gastrointestinal: Nodular masslike thickening of the rectal w all measuring 17 x 22 mm in size is seen. No bowel obstruction is seen. The appendix is normal. Vascular: Atherosclerotic calcificati ons are seen within the aorta and branch vessels. Lymphatic s: No enlarged lymph nodes by CT size criteria. PAGE 1 Signed Report (CONTINUED) Name: CECIL FRANCIS [facility] : 1940 Age/S: 79 / M [address] [facility] Unit #: [id number] Loc: [place] [address] Phys: Kelli Hernandez MD Acct: [id number] Dis Date: Status: REG ER PHONE #: [phone] Exam Date: 2018 2340 FAX #: [phone] Reason: rectal bleeding EXAMS: CPT CODE: [id number] CT ABD PELVIS W/CONT 96760 <Continued> Bones/Soft Tissues: No acute osseous findings. No ventral hernias. Peritoneum/Other: No extraluminal air. No extraluminal fluid. IMPRESSION: 1. Nodular masslike thickening of the rectal wall up to 22 mm in size concerning for underlying malignancy. Proctitis is not excluded but felt less likely. Direct visualization is recommended. 2. Other chronic findings as above. at 0012 Reported and signed by: Andre Santos M.D. CC: Kelli Hernandez MD Technologist:HERLINDA SUAREZ CTDI: DLP: Trnscb Date/Time: 02/13/2019 (001) [email or web address] Orig Print D/T: S: 02/13/2019 (001) CTDI: DLP: PAGE 2 Signed Report BASIC METABOLIC [id number] 19:02:00* Test Item Value Reference Range Comments SODIUM (test code=NA) 136 mmol/L 136-145 POTASSIUM (test code=K) 4.0 mmol/L 3.5-5.1 CHLORIDE (test code=CL) 106.0 mmol/L 98-107 CARBON DIOXIDE (test code=CO2) 25.0 mmol/L 21-32 ANION GAP (test code=GAP) 9.0 10-20 GLUCOSE (test code=GLU) 107 mg/dL 74-106 BLOOD UREA NITROGEN (test code=BUN) 16 mg/dL 7-18 GLOMERULAR FILTRATION RATE (test code=GFR) > 60 mL/min >=60 Estimated GFR by using Modified MDRD formula.Chronic kidney disease is defined as either kidney damageor GFR <60 mL/min/1.73 m2 for >3 months. CREATININE (test code=CREAT) 1.10 mg/dL 0.7-1.3 BUN/CREATININE RATIO (test code=BUN/CREA) 14.0 10-20 CALCIUM (test code=CA) 8.9 mg/dL 8.5-10.1 HEPATIC FUNCTION [id number] 19:02:00* Test Item Value Reference Range Comments TOTAL PROTEIN (test code=PROT) 7.6 gram/dL 6.4-8.2 ALBUMIN (test code=ALB) 3.0 g/dL 3.4-5.0 GLOBULIN (test code=GLOB) 4.6 gram/dL 2.7-4.2 ALBUMIN/GLOBULIN RATIO (test code=A/G) 0.7 0.75-1.50 BILIRUBIN TOTAL (test code=BILT) 0.50 mg/dL 0.0-1.0 BILIRUBIN DIRECT (test code=BILD) 0.10 mg/dL 0.0-0.20 SGOT/AST (test code=AST) 15 IUnit/L 15-37 SGPT/ALT (test code=ALT) 14 IUnit/L 12-78 ALKALINE PHOSPHATASE TOTAL (test code=ALKP) 78 IUnit/L 45-117 Note change in reference range due to change in reagent. [id number] 19:02:00* Test Item Value Reference Range Comments LIPASE (test code=LIP) 136 U/L 73.0-393.0 BASIC METABOLIC [id number] 18:54:00* Test Item Value Reference Range Comments SODIUM (test code=NA) 136 mmol/L 136-145 POTASSIUM (test code=K) 4.0 mmol/L 3.5-5.1 CHLORIDE (test code=CL) 106.0 mmol/L 98-107 CARBON DIOXIDE (test code=CO2) mmol/L 21-32 ANION GAP (test code=GAP) 10-20 GLUCOSE (test code=GLU) mg/dL 74-106 BLOOD UREA NITROGEN (test code=BUN) mg/dL 7-18 GLOMERULAR FILTRATION RATE (test code=GFR) mL/min >=60 CREATININE (test code=CREAT) mg/dL 0.7-1.3 BUN/CREATININE RATIO (test code=BUN/CREA) 10-20 CALCIUM (test code=CA) mg/dL 8.5-10.1 HEPATIC FUNCTION [id number] 18:54:00* Test Item Value Reference Range Comments TOTAL PROTEIN (test code=PROT) gram/dL 6.4-8.2 ALBUMIN (test code=ALB) g/dL 3.4-5.0 GLOBULIN (test code=GLOB) gram/dL 2.7-4.2 ALBUMIN/GLOBULIN RATIO (test code=A/G) 0.75-1.50 BILIRUBIN TOTAL (test code=BILT) mg/dL 0.0-1.0 BILIRUBIN DIRECT (test code=BILD) mg/dL 0.0-0.20 SGOT/AST (test code=AST) IUnit/L 15-37 SGPT/ALT (test code=ALT) IUnit/L 12-78 ALKALINE PHOSPHATASE TOTAL (test code=ALKP) IUnit/L 45-117 [id number] 18:54:00* Test Item Value Reference Range Comments LIPASE (test code=LIP) U/L 73.0-393.0 CBC W/AUTO [id number] 18:36:00* Test Item Value Reference Range Comments WHITE BLOOD CELL (test code=WBC) 9.3 K/mm3 4.5-12.5 RED BLOOD CELL (test code=RBC) 4.98 mill/mm3 4.0-5.8 HEMOGLOBIN (test code=HGB) 13.7 gram/dL 13.0-17.5 HEMATOCRIT (test code=HCT) 45.3 % 42.0-52.0 MEAN CELL VOLUME (test code=MCV) 91.0 fL 80-98 MEAN CELL HGB (test code=MCH) 27.5 picogram 27.0-33.0 MEAN CELL HGB CONCETRATION (test code=MCHC) 30.2 gram/dL 33.0-36.0 RED CELL DISTRIBUTION WIDTH (test code=RDW) 14.3 % 11.6-16.2 RED CELL DISTRIBUTION WIDTH SD (test code=RDW-SD) 47.4 fL 37.0-51.0 PLATELET COUNT (test code=PLT) 167 K/mm3 150-450 MEAN PLATELET VOLUME (test code=MPV) 9.3 fL 6.7-11.0 NEUTROPHIL % (test code=NT%) 64.8 % 39.0-69.0 IMMATURE GRANULOCYTE % (test code=IG%) 0.4 % 0.0-5.0 LYMPHOCYTE % (test code=LY%) 18.2 % 25.0-55.0 MONOCYTE % (test code=MO%) 10.8 % 0.0-10.0 EOSINOPHIL % (test code=EO%) 4.8 % 0.0-5.0 BASOPHIL % (test code=BA%) 1.0 % 0.0-1.0 NUCLEATED RBC % (test code=NRBC%) 0.0 % 0-0 NEUTROPHIL # (test code=NT#) 6.05 K/mm3 1.8-7.7 IMMATURE GRANULOCYTE # (test code=IG#) 0.04 x10 3/uL 0-0.03 LYMPHOCYTE # (test code=LY#) 1.70 K/mm3 1.0-5.0 MONOCYTE # (test code=MO#) 1.01 K/mm3 0-0.8 EOSINOPHIL # (test code=EO#) 0.45 K/mm3 0.0-0.5 BASOPHIL # (test code=BA#) 0.09 K/mm3 0.0-0.2 NUCLEATED RBC # (test code=NRBC#) 0.00 K/mm3 0.0-0.1 MANUAL DIFF REQUIRED (test code=MDIFF) NO CBC W/AUTO [id number] 18:27:00* Test Item Value Reference Range Comments WHITE BLOOD CELL (test code=WBC) K/mm3 4.5-12.5 RED BLOOD CELL (test code=RBC) mill/mm3 4.0-5.8 HEMOGLOBIN (test code=HGB) 13.7 gram/dL 13.0-17.5 HEMATOCRIT (test code=HCT) 45.3 % 42.0-52.0 MEAN CELL VOLUME (test code=MCV) fL 80-98 MEAN CELL HGB (test code=MCH) picogram 27.0-33.0 MEAN CELL HGB CONCETRATION (test code=MCHC) gram/dL 33.0-36.0 RED CELL DISTRIBUTION WIDTH (test code=RDW) % 11.6-16.2 RED CELL DISTRIBUTION WIDTH SD (test code=RDW-SD) fL 37.0-51.0 PLATELET COUNT (test code=PLT) K/mm3 150-450 MEAN PLATELET VOLUME (test code=MPV) fL 6.7-11.0 NEUTROPHIL % (test code=NT%) % 39.0-69.0 IMMATURE GRANULOCYTE % (test code=IG%) % 0.0-5.0 LYMPHOCYTE % (test code=LY%) % 25.0-55.0 MONOCYTE % (test code=MO%) % 0.0-10.0 EOSINOPHIL % (test code=EO%) % 0.0-5.0 BASOPHIL % (test code=BA%) % 0.0-1.0 NEUTROPHIL # (test code=NT#) K/mm3 1.8-7.7 LYMPHOCYTE # (test code=LY#) K/mm3 1.0-5.0 MONOCYTE # (test code=MO#) K/mm3 0-0.8 EOSINOPHIL # (test code=EO#) K/mm3 0.0-0.5 BASOPHIL # (test code=BA#) K/mm3 0.0-0.2 - CT C-SPINE W/O [id number] 10:35:00 Name: CECIL FRANCIS [facility] : 1940 Age/S: 78 / M [address] Unit #: [id number] Loc: [place] [address] Phys: William Jurado MD Acct: [id number] Dis Date: Status: REG ER PHONE #: [phone] Exam Date: 12/26/2018 1002 FAX #: [phone] Reason: Neck Pain EXAMS: CPT CODE: [id number] CT C-SPINE W/O CONTRAST 37563 HISTORY: Neck pain. COMPARISON: CT scan from February 13, 2018. CT cervical spine without contrast: Automated exposure control. No acute fracture of the cervical spine. DJD. No prevertebral soft tissue swelling. Severe facet hypertrophy throughout the cervical spine resulting in severe foraminal stenosis. Scattered posterior marginal disc osteophyte resulting in moderate canal foraminal stenosis especially at C6-C7 level. Correlate with radicular symptoms. Unremarkable thyroid glands. Superior mediastinum is unremarkable. Lung apices demonstrating extensive scarring. Anatomic alignment. Vertebral body heights are maintained. Narrowed disc space at C6-C7 level. Anterior osteophytes. Uncovertebral joints are narrowed. IMPRESSION: No acute fracture. Anatomic alignment. DJD. at 1035 Reported and signed by: Javier Tiwari M.D. CC: William Jurado MD Technologist:Walter Santana RT(R),(MR),(CT) CTDI: DLP: Trnscb Date/Time: 12/26/2018 (1035) [email or web address] Orig Print D/T: S: 12/26/2018 (1039) CTDI: DLP: PAGE 1 Signed Report - CT HEAD/BRAIN W/O CONT 2018-12-26 10:32:00 Name: CECIL FRANCIS [facility] : 1940 Age/S: 78 / M [address] [facility] Unit #: [id number] Loc: [place] [address] Phys: William Jurado MD Acct: [id number] Dis Date: Status: REG ER PHONE #: [phone] Exam Date: 12/26/2018 1002 FAX #: [phone] Reason: HEADACHE EXAMS: CPT CODE: [id number] CT HEAD/BRAIN W/O CONT 95731 HISTORY: Headache and on Plavix. COMPARISON: None available. CT brain without contrast: Automated exposure control.. No acute intracranial bleeds or extra-axial collections are noted. No acute territorial vascular infarction is noted. The sulci, gyri, ventricles and subarachnoid spaces and the basilar cisterns are normal for patient's age. No herniation or hydrocephalus or midline shift is noted. Mild periventricular ischemic gliosis is noted. Age-appropriate atrophy is noted as well. Portions of the visualized paranasal sinuses demonstrated mucosal thickening of the and ethmoid sinuses. No obvious bony calvarial defect is noted. IMPRESSION: No acute intracranial bleeds or extra-axial collections. No acute territorial vascular infarction. No herniation or hydrocephalus or midline shift. 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 at 1032 Reported and signed by: Javier Tiwari M.D. CC: William Jurado MD Technologist:Walter Santana RT(R),(MR),(CT) CTDI: DLP: Trnscb Date/Time: 12/26/2018 (1032) [email or web address] Orig Print D/T: S: 12/26/2018 (1035) CTDI: DLP: PAGE 1 Signed Report BASIC METABOLIC [id number] 10:28:00* Test Item Value Reference Range Comments SODIUM (test code=NA) 146 mmol/L 136-145 POTASSIUM (test code=K) 4.1 mmol/L 3.5-5.1 CHLORIDE (test code=CL) 114.0 mmol/L 98-107 CARBON DIOXIDE (test code=CO2) 25.0 mmol/L 21-32 ANION GAP (test code=GAP) 11.1 10-20 GLUCOSE (test code=GLU) 101 mg/dL 74-106 BLOOD UREA NITROGEN (test code=BUN) 14 mg/dL 7-18 GLOMERULAR FILTRATION RATE (test code=GFR) 42 mL/min >=60 Estimated GFR by using Modified MDRD formula.Chronic kidney disease is defined as either kidney damageor GFR <60 mL/min/1.73 m2 for >3 months. CREATININE (test code=CREAT) 1.60 mg/dL 0.7-1.3 BUN/CREATININE RATIO (test code=BUN/CREA) 9.0 10-20 CALCIUM (test code=CA) 8.4 mg/dL 8.5-10.1 - XR ELBOW 3 + V [id number] 10:25:00 FAX: William Jurado MD [phone] [place]: St: REG Name: CECIL SAGE [facility] : [birth year] Age/S: 78/M [address] [facility] Unit #: [id number] Loc: [place] [address] Phys: William Jurado MD Acct: [id number] Dis Date: Status: REG ER PHONE #: [phone] Exam Date: 12/26/2018 1010 FAX #: [phone] Reason: ELBOW PAIN EXAMS: CPT CODE: [id number] XR ELBOW 3 + V RT [address]239 HISTORY: Pain. ZULEYKA RISON: None available. 3 VIEWS OF THE RIGHT WRIST AND 2 VIEWS OF T HE RIGHT FOREARM: Severe polyarticular joint space narrowing with complete loss of joint space in the DIP and PIP levels consistent with adv anced osteoarthritis. The 2nd distal phalanx is obscured due to the pulse oximeter. Carpal joints are narrowed. No AVN of the lunate or the scaphoid bones. The forearm is without fracture. Narrowed elbow joint. Marginal osteophytes from the humeral condyles. Olecranon entheso phyte. IMPRESSION: No acute fracture or disloc ation. Advanced DJD with severely narrowed joint spaces as described. 3 VIEWS OF THE RIGHT ELBOW: No acute fracture or dislocation. Narrowed elbow joint. Marginal osteophytes from the humeral condyles. Olecranon enthesophyte. No joint fluid. Mi neralization and the soft tissues are normal IMPRESSION: No acute fracture or dislocation. at 1025 Reported and signed by: Javier Tiwari M.D. CC: William Jurado MD Technologist: Mary Quintanilla(R); DOC ELA(R) Trnctrd Date/Time/By: 12/26/2018 (1028) : By: [email or web address] Orig Print D/T: S: 12/26/2018 (9088) PAGE 1 Signed Report - XR FOREARM 2 VIEWS RT 2018-12-26 10:25:00 FAX: William Jurado MD [phone] [place]: B St: REG Name: Shannan KINDERGARTEN PARAPROFESSIONALCECIL CESAR [facility] : [birth year] Age/S: 78/M [address] [facility] Unit #: [id number] Loc: [place] [address] Phys: William Jurado MD Acct: [id number] Dis Date: Status: REG ER PHONE #: [phone] Exam Date: 12/26/2018 1010 FAX #: [phone] Reason: FOREARM PAIN EXAMS: CPT CODE: [id number] XR FOREARM [address] [place] [address] HISTORY: Pain. ZULEYKA RISON: None available. 3 VIEWS OF THE RIGHT WRIST AND 2 VIEWS OF T HE RIGHT FOREARM: Severe polyarticular joint space narrowing with complete loss of joint space in the DIP and PIP levels consistent with adv anced osteoarthritis. The 2nd distal phalanx is obscured due to the pulse oximeter. Carpal joints are narrowed. No AVN of the lunate or the scaphoid bones. The forearm is without fracture. Narrowed elbow joint. Marginal osteophytes from the humeral condyles. Olecranon entheso phyte. IMPRESSION: No acute fracture or disloc ation. Advanced DJD with severely narrowed joint spaces as described. 3 VIEWS OF THE RIGHT ELBOW: No acute fracture or dislocation. Narrowed elbow joint. Marginal osteophytes from the humeral condyles. Olecranon enthesophyte. No joint fluid. Mi neralization and the soft tissues are normal IMPRESSION: No acute fracture or dislocation. at 1025 Reported and signed by: Javier Tiwari M.D. CC: William Jurado MD Technologist: Mary Quintanilla(R); DOC LEA(R) Trnscrd Date/Time/By: 12/26/2018 (4266) : By: [email or web address] Orig Print D/T: S: 12/26/2018 (8693) PAGE 1 Signed Report - XR HAND 3 + V [id number] 10:25:00 FAX: William Jurado MD [phone] [place]: B St: REG Name: CECIL SAGE [facility] : [birth year] Age/S: 78/M [address] [facility] Unit #: [id number] Loc: [place] [facility] [place] [address] Phys: William Jurado MD Acct: [id number] Dis Date: Status: REG ER PHONE #: [phone] Exam Date: 12/26/2018 1010 FAX #: [phone] Reason: HAND PAIN EXAMS: CPT CODE: [id number] XR HAND 3 + V RT [address]69 HISTORY: Pain. ZULEYKA RISON: None available. 3 VIEWS OF THE RIGHT WRIST AND 2 VIEWS OF T HE RIGHT FOREARM: Severe polyarticular joint space narrowing with complete loss of joint space in the DIP and PIP levels consistent with adv anced osteoarthritis. The 2nd distal phalanx is obscured due to the pulse oximeter. Carpal joints are narrowed. No AVN of the lunate or the scaphoid bones. The forearm is without fracture. Narrowed elbow joint. Marginal osteophytes from the humeral condyles. Olecranon entheso phyte. IMPRESSION: No acute fracture or disloc ation. Advanced DJD with severely narrowed joint spaces as described. 3 VIEWS OF THE RIGHT ELBOW: No acute fracture or dislocation. Narrowed elbow joint. Marginal osteophytes from the humeral condyles. Olecranon enthesophyte. No joint fluid. Mi neralization and the soft tissues are normal IMPRESSION: No acute fracture or dislocation. at 1025 Reported and signed by: Javier Tiwari M.D. CC: William Jurado MD Technologist: Mary Quintanilla(R); DOC LEA(R) Trnscrd Date/Time/By: 12/26/2018 (1025) : By: [email or web address] Orig Print D/T: S: 12/26/2018 (1028) PAGE 1 Signed Report BASIC METABOLIC [id number] 10:22:00* Test Item Value Reference Range Comments SODIUM (test code=NA) 146 mmol/L 136-145 POTASSIUM (test code=K) 4.1 mmol/L 3.5-5.1 CHLORIDE (test code=CL) 114.0 mmol/L 98-107 CARBON DIOXIDE (test code=CO2) mmol/L 21-32 ANION GAP (test code=GAP) 10-20 GLUCOSE (test code=GLU) mg/dL 74-106 BLOOD UREA NITROGEN (test code=BUN) mg/dL 7-18 GLOMERULAR FILTRATION RATE (test code=GFR) mL/min >=60 CREATININE (test code=CREAT) mg/dL 0.7-1.3 BUN/CREATININE RATIO (test code=BUN/CREA) 10-20 CALCIUM (test code=CA) mg/dL 8.5-10.1 - XR CHEST 1 [id number] 10:22:00 FAX: William Jurado MD [phone] [place]: B St: REG Name: CECIL SAEG [facility] : [birth year] Age/S: 78/M [address] [facility] Unit #: [id number] Loc: [place] [address] Phys: William Jurado MD Acct: [id number] Dis Date: Status: REG ER PHONE #: [phone] Exam Date: 12/26/2018 1010 FAX #: [phone] Reason: CHEST PAIN EXAMS: CPT CODE: [id number] XR CHEST 1 V 44140 HISTORY: Pain. ZULEYKA RISON: February 13, 2018. Left ICD is unchanged. No acu te infiltrates, effusion or congestion is noted. Calcified granuloma in t he right base. Mild scarring. Cardiomegaly. IMPR ESSION: No acute infiltrates, effusion or congestion. at 1022 Reported and signed by: Javier Tiwari M.D. CC: William Jurado MD Technologist: Mary Quintanilla(R); DOC LEA(R) Trnscrd Date/Time/By: 019 (1022) : By: [email or web address] Orig Print D/T: S: 12/26/2018 (4730) PAGE 1 Signed Report PROTHROMBIN [id number] 09:56:00* Test Item Value Reference Range Comments PROTHROMBIN TIME PATIENT (test code=PTP) 12.3 seconds 9.0-14.0 INTERNATIONAL NORMAL RATIO (test code=INR) 1.0 0.8-1.2 The therapeutic range for oral anticoagulant therapy formost indications is an international normalized ratio (INR)of between 2.0 and 3.0. The recommended therapeutic INRrange for various clinical situations is listed below: Clinical Situation INR range Pulmonary e mbolism treatment (2.0-3.0)Venous thrombosis treatmentVenous thrombosis prophylaxis (high risk surgery)Prevention of systemic embolism from: Acute myocardial infarction Valvular heart disease Atrial fibrillation Mechanical prosthetic heart valves (2.5-3.5) IS PATIENT ON ANTICOAGULANTS? NTHROMBOPLASTIN TIME [id number] 09:56:00* Test Item Value Reference Range Comments THROMBOPLASTIN TIME PARTIAL (test code=PTT) 34.0 seconds 25.0-36.5 IS PATIENT ON ANTICOAGULANTS? NCBC W/O [id number] 09:37:00* Test Item Value Reference Range Comments WHITE BLOOD CELL (test code=WBC) 6.8 K/mm3 4.5-12.5 RED BLOOD CELL (test code=RBC) 4.44 mill/mm3 4.0-5.8 HEMOGLOBIN (test code=HGB) 12.7 gram/dL 13.0-17.5 HEMATOCRIT (test code=HCT) 39.6 % 42.0-52.0 MEAN CELL VOLUME (test code=MCV) 89.2 fL 80-98 MEAN CELL HGB (test code=MCH) 28.6 picogram 27.0-33.0 MEAN CELL HGB CONCETRATION (test code=MCHC) 32.1 gram/dL 33.0-36.0 RED CELL DISTRIBUTION WIDTH (test code=RDW) 14.1 % 11.6-16.2 PLATELET COUNT (test code=PLT) 185 K/mm3 150-450 MEAN PLATELET VOLUME (test code=MPV) 9.1 fL 6.7-11.0
--- NOTE | 2019-05-13 05:11 | Diagnostic Imaging Report ---
CT BRAIN WO HISTORY: Fall COMPARISON: None. Technique: Noncontrast axial scans were obtained from skull base to the vertex. Coronal and sagittal reconstructions obtained from the axial data. One or more of the following dose reduction techniques were used: Automated exposure control, adjustment of the mA and/or kV according to patient size, and/or utilization of iterative reconstruction technique. DISCUSSION: Scalp/Skull: Unremarkable. Brain sulci: Prominent. Ventricles: Compensatory dilatation. Extra-axial spaces: No masses or fluid collections. Carotid and vertebral artery calcifications are present. Parenchyma: Mild bilateral deep white matter hypodensity is likely chronic microvascular ischemic change. Old small cortical infarcts are seen along the left superior frontal sulcus and right inferior cerebellum. Otherwise, no masses, hemorrhage, or large vascular territory acute infarct. Dural sinuses: No abnormal densities. Sellar/Suprasellar region: Intact. Skull base: Intact. Incidental findings: Mild scattered paranasal sinus mucosal thickening is partially visualized. IMPRESSION: 1. No acute intracranial abnormalities. 2. Mild supratentorial chronic microvascular ischemic change. Generalized cerebral volume loss. 3. 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 Signed by: Dr. Alex Carranza M.D. on 05/13/2019 5:08 AM
--- NOTE | 2019-05-13 05:19 | Diagnostic Imaging Report ---
CT CERVICAL SPINE WO HISTORY: Fall COMPARISON: Concurrent head CT TECHNIQUE: CT of the cervical spine without contrast. Sagittal and coronal reformations were created. One or more of the following dose reduction techniques were used: Automated exposure control, adjustment of the mA and/or kV according to patient size, and/or utilization of iterative reconstruction technique. FINDINGS: Cervical lordosis is straightened. There is no significant scoliosis. No fractures, compression deformity, or destructive osseous lesions are seen. The craniocervical junction is intact. No gross spinal canal masses are seen. The paravertebral and paraspinal soft tissues are unremarkable. Mild to moderate multilevel spondylosis is most prominent at C6-C7. Multilevel prominent bilateral facet arthrosis is also present, left side greater than right; there is associated minimal grade 1 anterolisthesis of C5 on C6. Advanced atlantoaxial arthrosis is present as well. There is scarring in the lung apices, right greater than left. Approximately 2 cm mass in the superficial left parotid gland may be a pleomorphic adenoma. Moderate right and severe left carotid bulb calcified plaque is present. Scattered atherosclerotic calcifications are also seen in the proximal great vessels. Right subclavian line is partially visualized. Left subclavian leads are also partially visualized. IMPRESSION: 1. No acute osseous abnormalities. 2. Mild to moderate multilevel spondylosis, most prominent at C6-C7. 3. Multilevel prominent facet arthrosis, left side greater than right, with minimal grade 1 anterolisthesis of C5 on C6. 4. Incidental 2 cm left parotid mass may be a pleomorphic adenoma or enlarged lymph node. Signed by: Dr. Alex Carranza M.D. on 05/13/2019 5:15 AM
--- NOTE | 2019-05-13 05:29 | Diagnostic Imaging Report ---
CT THORACIC SPINE WO HISTORY: Fall COMPARISON: Concurrent cervical spine CT TECHNIQUE: Axial CT images of the thoracic spine were obtained without intravenous contrast. Coronal/sagittal reformations were created. One or more of the following dose reduction techniques were used: Automated exposure control, adjustment of the mA and/or kV according to patient size, and/or utilization of iterative reconstruction technique. FINDINGS: Mild bone demineralization limits evaluation. Thoracic kyphosis is preserved. There is no significant scoliosis or subluxation. Mild compression deformity of the T6 vertebral body is age indeterminate; there is no significant retropulsion. Otherwise, no definite acute fracture or compression deformity is seen. Partially healed, minimally displaced fractures of the medial right 11th and 12th ribs are present. No gross spinal canal mass is seen. The paravertebral and paraspinal soft tissues are unremarkable. Mild multilevel spondylotic changes are present. Prominent marginal osteophytes in the lower thoracic spine with relatively preserved disc spaces are compatible with diffuse idiopathic skeletal hyperostosis There is no significant canal or foraminal stenosis. There is scarring in the lung apices, right greater than left. Mild bibasilar atelectasis and/or scarring is also present. Intracardiac leads are partially visualized. Diffuse calcified atherosclerosis involves the coronary arteries. There is a small sliding hiatal hernia. A few small calcified subcarinal lymph nodes and multiple small splenic calcifications are compatible with remote granulomatous disease. IMPRESSION: 1. Age indeterminate mild T6 vertebral compression deformity without significant retropulsion. 2. Otherwise, no acute osseous abnormalities. 3. Partially healed, minimally displaced fractures of the medial right 11th and 12th ribs. 4. Mild multilevel thoracic spondylosis with diffuse idiopathic skeletal hyperostosis . Signed by: Dr. Alex Carranza M.D. on 05/13/2019 5:26 AM
--- NOTE | 2019-05-13 05:43 | Diagnostic Imaging Report ---
CT LUMBAR SPINE WO HISTORY: Fall COMPARISON: Concurrent thoracic spine CT TECHNIQUE: Axial CT images of the lumbar spine were obtained without contrast. Coronal and sagittal reconstructions obtained from the axial data. One or more of the following dose reduction techniques were used: Automated exposure control, adjustment of the mA and/or kV according to patient size, and/or utilization of iterative reconstruction technique. DISCUSSION: Mild bone demineralization limits evaluation. There are 4 nonrib-bearing lumbar vertebral bodies. Lumbar lordosis is preserved. There is no significant scoliosis or subluxation. No definite acute fracture or compression deformity is seen. No gross spinal canal mass is seen. The paravertebral and paraspinal soft tissues are unremarkable. Mild multilevel spondylotic changes are present. Small Schmorl's node in the T11 superior endplate is present. Mild to moderate bilateral sacroiliac degenerative changes are present. T12-L1: No gross canal or foraminal stenosis. L1-L2: Mild left foraminal stenosis due to disc bulge and facet arthrosis. No gross canal or right foraminal stenosis. L2-L3: At least mild to moderate canal stenosis due to disc bulge and ligamentum flavum thickening. Mild left foraminal stenosis due to disc bulge and facet arthrosis. No gross right foraminal stenosis. Facet arthrosis is mild, left greater than right. L3-L4: At least mild to moderate canal stenosis due to disc bulge and ligamentum flavum thickening. Mild bilateral foraminal stenoses due to disc bulge and facet arthrosis. Facet arthrosis is moderate, left greater than right. L4-S1: Mild bilateral foraminal stenoses due to disc bulge and facet arthrosis. No gross canal stenosis. Facet arthrosis is severe, right greater than left. Small hepatic and splenic calcifications are compatible with remote granulomatous disease. 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 The abdominal aorta is mildly ectatic. IMPRESSION: 1. No acute osseous abnormalities. 2. Mild multilevel spondylosis. Multilevel facet arthrosis, severe at L4-S1 (right greater than left). 3. At least mild to moderate degenerative canal stenoses at L2-L3 and L3-L4. 4. Mild multilevel bilateral degenerative foraminal stenoses. 5. Mild to moderate bilateral sacroiliac degenerative changes. 6. 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 Signed by: Dr. Alex Carranza M.D. on 05/13/2019 5:40 AM
[2019-05-13 05:52] VITALS: BP 142/67
--- NOTE | 2019-05-13 06:01 | NUR ---
[facility] ([facility]) CALLED FOR TRANSPORT
== END 2019-05-13 06:35 | disposition home or self-care (01) ==
LOC: ER 03:22
DX: M54.6 Pain in thoracic spine (principal); M54.5 Low back pain; S23.3XXA Sprain of ligaments of thoracic spine, initial encounter; S33.5XXA Sprain of ligaments of lumbar spine, initial encounter; S00.83XA Contusion of other part of head, initial encounter; M54.2 Cervicalgia; W01.0XXA Fall on same level from slipping, tripping and stumbling without subsequent striking against object, initial encounter; Y92.008 Other place in unspecified non-institutional (private) residence as the place of occurrence of the external cause; C18.9 Malignant neoplasm of colon, unspecified; Z79.899 Other long term (current) drug therapy; I10 Essential (primary) hypertension; Z95.810 Presence of automatic (implantable) cardiac defibrillator
CPT/HCPCS: 70450; 72125; 72128; 72131; 99284